=== PATIENT | female | born 1995 | race Caucasian/White ===

== ENCOUNTER 2022-01-06 08:00 | Outpatient (CLI) | payer BC ==
[2022-01-06 15:16] LABS: BILIRUBIN,URINE NEGATIVE (NEGATIVE); GLUCOSE, URINE (UA) NEGATIVE (NEGATIVE); KETONES,URINE (UA) NEGATIVE (NEGATIVE); LEUKOCYTE ESTERASE, URINE TRACE (NEGATIVE); NITRITE,URINE NEGATIVE (NEGATIVE); OCCULT BLOOD,URINE NEGATIVE (NEGATIVE); PROTEIN,URINE NEGATIVE (NEGATIVE); UROBILINOGEN,URINE 0.2 (NORMAL) E.U./dL (NORMAL)
[2022-01-06 15:18] LABS: CLARITY,URINE CLEAR (CLEAR)
[2022-01-06 16:11] LABS: BACTERIA,URINE Rare /HPF (None Seen); CRYSTALS,URINE 6-10 Calcium Oxalate /LPF; RBC,URINE None Seen /HPF (0-5); SQUAMOUS EPITHELIAL CELL,UR MOD Squamous (<= Few); WBC,URINE 0-3 /HPF (0-5)
[2022-01-06 23:12] LABS: CHLAMYDIA TRACHOMATIS DNA NEGATIVE (NEGATIVE); NEISSERIA GONORRHOEAE DNA NEGATIVE (NEGATIVE); TRICHOMONAS VAGINALIS DNA NEGATIVE (NEGATIVE)
== END 2022-01-06 23:59 | disposition home or self-care (01) ==
LOC: LAB.WC 08:00
PROVIDERS: ATTEND Nurse Practitioner
DX: Z34.90 Encounter for supervision of normal pregnancy, unspecified, unspecified trimester (principal); Z36.89 Encounter for other specified antenatal screening
CPT/HCPCS: 81001; 87086; 87491; 87591; 87661

== ENCOUNTER 2022-01-06 12:35 | Outpatient (CLI) | payer BC ==
[2022-01-06 12:51] LABS: BASOPHILS # (AUTO) 0.1 10^3/uL (0.0-0.1); BASOPHILS % (AUTO) 0.5 %; EOSINOPHILS # (AUTO) 0.3 10^3/uL (0.0-0.7); EOSINOPHILS % (AUTO) 2.3 %; HCT - HEMATOCRIT 39.5 % (37.0-47.0); HGB - HEMOGLOBIN 12.8 g/dL (12.0-16.0); LYMPHOCYTES # (AUTO) 2.8 10^3/uL (1.5-3.5); LYMPHOCYTES % (AUTO) 25.9 %; MEAN CORPUSCULAR HEMOGLOBIN 28.1 pg (27.0-31.0); MEAN CORPUSCULAR HGB CONC 32.4 g/dL (32.0-36.0); MEAN CORPUSCULAR VOLUME 86.8 fL (81.0-99.0); MEAN PLATELET VOLUME 10.3 fL (7.9-10.8); MONOCYTES # (AUTO) 0.9 10^3/uL (0.0-1.0); MONOCYTES % (AUTO) 8.3 %; NEUTROPHILS # (AUTO) 6.8 10^3/uL (1.5-6.6); NEUTROPHILS % (AUTO) 62.4 %; PLT - PLATELET COUNT 283 10^3/uL (130-450); RED BLOOD COUNT 4.55 10^6/uL (4.20-5.40); RED CELL DISTRIBUTION WIDTH 13.3 % (12.0-15.0); WHITE BLOOD COUNT 10.8 x10^3/uL (4.8-10.8)
[2022-01-07 04:08] LABS: HBsAG SCREEN Negative (Negative)
[2022-01-07 07:10] LABS: HCV AB <0.1 s/co ratio (0.0-0.9); HIV SCREEN 4TH GENERATION Non Reactive (Non Reactive)
[2022-01-07 08:10] LABS: RPR Non Reactive (Non Reactive); VARICELLA-ZOSTER AB IGG 2678 index (Immune >165)
== END 2022-01-06 12:36 | disposition home or self-care (01) ==
LOC: LAB 12:35
PROVIDERS: ATTEND Nurse Practitioner
DX: Z34.90 Encounter for supervision of normal pregnancy, unspecified, unspecified trimester (principal); Z36.89 Encounter for other specified antenatal screening
CPT/HCPCS: 36415; 81001; 85025; 86592; 86762; 86787; 86803; 86850; 86900; 86901; 87086; 87340; 87389; 87491; 87591; 87661

== ENCOUNTER 2022-01-18 17:00 | Outpatient (CLI) | payer BC ==
--- NOTE | 2022-01-19 13:45 | Ultrasound Report ---
PROCEDURE: OB First Trimester w/TV INDICATIONS: POSITIVE TEST OUTSIDE/PRIOR DATING DATA: Last menstrual period (LMP): 11/14/2021. LMP-based estimated date of delivery (DEEPALI): 08/21/2022. First dating scan (date and location): 01/18/2022. Estimated date of delivery (DEEPALI) from first dating scan: 08/22/2022. The below data below was generated using the ultrasound generated DEEPALI of 08/22/2022 TECHNIQUE: Real-time scanning was performed of the fetus and maternal pelvic organs, with image documentation. Endovaginal scanning was also performed to better visualize the fetus and maternal ovaries. COMPARISON: None. FINDINGS: Uterine fundal gestational sac with mean sac diameter 3.5 cm. Wamic-rump length of a fetus in the ges tational sac measuring 2.4 cm. heart rate 178 bpm. Yolk sac noted. Right corpus luteum cyst not ed. Left ovary normal. IMPRESSION: Single living intrauterine gestation with estimated gestational age of 9 weeks 1 day. Reviewed by: Mj Goel MD on 01/19/2022 1:44 PM PDT Approved by: Mj Goel MD on 01/19/2022 1:44 PM PDT Station ID: [id number]
== END 2022-01-18 17:01 | disposition home or self-care (01) ==
LOC: DI 17:00
PROVIDERS: ATTEND Nurse Practitioner
DX: Z32.01 Encounter for pregnancy test, result positive (principal)

== ENCOUNTER 2022-03-25 10:59 | Outpatient (CLI) | payer OTHER | END 2022-03-25 11:00 | disposition home or self-care (01) | LOC: LAB 10:59 | PROVIDERS: ATTEND Nurse Practitioner Obstetrics & Gynecology | DX: Z13.79 Encounter for other screening for genetic and chromosomal anomalies (principal) | CPT/HCPCS: 36415; 81511 ==

== ENCOUNTER 2022-04-07 20:07 | Outpatient (CLI) | payer OTHER ==
--- NOTE | 2022-04-08 10:16 | Ultrasound Report ---
PROCEDURE: OB Detailed Eval INDICATIONS: SUPERVISOIN OF OUTSIDE/PRIOR DATING DATA: Last menstrual period (LMP): 11/14/2021. LMP-based estimated date of delivery (DEEPALI): 08/21/2022. First dating scan (date and location): 01/18/2022. Estimated date of delivery (DEEPALI) from first dating scan: 08/22/2022 (working DEEPALI). TECHNIQUE: Real-time scanning was performed of the fetus, with image documentation and biometric measurements. COMPARISON: 01/18/2022 FINDINGS: General: A single living intrauterine gestation is present. Presentation: Transverse, head maternal left Placenta: Placental position is anterior, without previa. Amniotic fluid index: 15.4 cm heart rate: 138 beats per minute. Maternal cervical canal: 4.3 cm long; normal length is 2.5 cm or more. biometrics: Biparietal diameter: 4.57 cm Head circumference: 18.2 cm Abdominal circumference: 17.0 cm Femur length: 3.46 cm Estimated gestational age from initial scan: 20 weeks and 3 days Composite gestational age from present scan: 20 weeks and 5 days Estimated weight and percentile: 417 g, 90th percentile Measurement variability in biometric dating: +/- 10 days from 12-20 weeks gestation, +/- 2 weeks from 20-30 weeks gestation, +/- 3 weeks at 30 weeks gestation or later. Anatomic survey: Neuro: Ventricles are normal at less than 10 mm. Cerebellum is within normal limits. Nuchal region not well seen. This measures 5 to 6 mm, at the upper limit of normal. Face: Nose and lips, facial profile are normal. Spine: Not well seen Heart: 4-chambered heart is present, with normal ventricular outflow tracts. Diaphragm: Diaphragm is intact. Stomach: Left-sided stomach is present. Kidneys: Bilateral renal pelvises measure 5 mm. Cord: 3 vessel cord has orthotopic insertion. Bladder: Normal in size. Extremities: All 4 extremities are visualized. Limited exam due to body habitus. IMPRESSION: Living intrauterine gestation at 20 weeks and 5 days, with EFW at the 90th percentile at the upper li zain of normal. The nuchal region is prominent measuring 5 to 6 mm, but overall not well seen. Consider follow-up ree valuation in 7-10 days, ideally before 22 weeks of gestational age. Spine is also not well seen, grossly unremarkable. There is also bilateral renal pelviectasis (UTD A1), consider follow-up ultrasound after 32 weeks unl ess it resolves sooner. Reviewed by: Eugene Montgomery MD on 04/08/2022 10:15 AM [facility] Approved by: Eugene Montgomery MD on 04/08/2022 10:15 AM [facility] Station ID: [id number]
== END 2022-04-07 20:08 | disposition home or self-care (01) ==
LOC: DI 20:07
PROVIDERS: ATTEND Nurse Practitioner Obstetrics & Gynecology
DX: Z34.02 Encounter for supervision of normal first pregnancy, second trimester (principal); Z36.89 Encounter for other specified antenatal screening

== ENCOUNTER 2022-05-20 11:05 | Outpatient (CLI) | payer OTHER ==
[2022-05-20 12:19] LABS: HGB - HEMOGLOBIN 11.5 g/dL (12.0-16.0); MEAN CORPUSCULAR HEMOGLOBIN 27.4 pg (27.0-31.0); MEAN CORPUSCULAR HGB CONC 31.9 g/dL (32.0-36.0); MEAN CORPUSCULAR VOLUME 85.7 fL (81.0-99.0); MEAN PLATELET VOLUME 10.7 fL (7.9-10.8); RED BLOOD COUNT 4.2 10^6/uL (4.20-5.40); RED CELL DISTRIBUTION WIDTH 13.6 % (12.0-15.0); WHITE BLOOD COUNT 10.1 x10^3/uL (4.8-10.8)
== END 2022-05-20 11:06 | disposition home or self-care (01) ==
LOC: LAB 11:05
PROVIDERS: ATTEND Nurse Practitioner Obstetrics & Gynecology
DX: Z36.9 Encounter for antenatal screening, unspecified (principal)
CPT/HCPCS: 36415; 82950; 85027

== ENCOUNTER 2022-05-27 07:39 | Outpatient (CLI) | payer OTHER ==
[2022-05-27 08:13] LABS: GTT GLUCOSE,FASTING 89 mg/dL (70-100)
== END 2022-05-27 07:40 | disposition home or self-care (01) ==
LOC: LAB 07:39
PROVIDERS: ATTEND Nurse Practitioner Obstetrics & Gynecology
DX: O99.810 Abnormal glucose complicating pregnancy (principal)
CPT/HCPCS: 36415; 82951; 82952

== ENCOUNTER 2022-07-12 19:57 | Outpatient (CLI) | payer OTHER ==
--- NOTE | 2022-07-13 14:35 | Ultrasound Report ---
PROCEDURE: OB F/U or Repeat INDICATIONS: OBESITY COMPLICATION OUTSIDE/PRIOR DATING DATA: Last menstrual period (LMP): 11/14/2021. LMP-based estimated date of delivery (DEEPALI): 08/21/2022. First dating scan (date and location): 01/18/2022. Estimated date of delivery (DEEPALI) from first dating scan: 08/22/2022. The below data below was generated using the working DEEPALI of 08/22/2022 TECHNIQUE: Real-time scanning was performed of the fetus, with image documentation and biometric measurements. Endovaginal scanning: Not indicated COMPARISON: 04/21/2022, 04/07/2022 FINDINGS: General: A single living intrauterine gestation is present. Presentation: Vertex Placenta: Placental position is anterior, without previa. Amniotic fluid index: 12 cm, normal for gestational age. heart rate: 129 beats per minute. Maternal cervical canal: Not well seen. biometrics: Biparietal diameter: 8 cm, 32 weeks, 1 day. Head circumference: 31.2 cm, 35 weeks, 0 day. Abdominal circumference: 31.2 cm, 35 weeks, 1 day. Femur length: 6.6 cm, 34 weeks, 0 day. Estimated gestational age from initial scan: 34 weeks, 1 day. Composite gestational age from present scan: 34 weeks, 1 day. Estimated weight and percentile: 2442.2 g, 54.4% Measurement variability in biometric dating: +/- 10 days from 12-20 weeks gestation, +/- 2 weeks from 20-30 weeks gestation, +/- 3 weeks at 30 weeks gestation or more. Other: Right renal pelvis now measures 4 mm in diameter. Left renal pelvis also measures 4 mm in diam eter. IMPRESSION: 1. Single live intrauterine gestation with fetus in vertex presentation. heart rate is 129 bpm. Normal amount of amniotic fluid. Normal growth. Estimated weight is at 54.4%. 2. Bilateral renal pelvis now measures up to 4 mm in diameter and are within normal limits. Reviewed by: Joseph Lopez MD on 07/13/2022 2:34 PM PDT Approved by: Joseph Lopez MD on 07/13/2022 2:34 PM PDT Station ID: [id number]
== END 2022-07-12 19:58 | disposition home or self-care (01) ==
LOC: DI 19:57
PROVIDERS: ATTEND Nurse Practitioner Obstetrics & Gynecology
DX: O99.213 Obesity complicating pregnancy, third trimester (principal); Z3A.34 34 weeks gestation of pregnancy

== ENCOUNTER 2022-08-06 13:17 | Outpatient (CLI) | payer OTHER ==
[2022-08-06 13:34] LABS: BASOPHILS % (AUTO) 0.2 %; EOSINOPHILS # (AUTO) 0.1 10^3/uL (0.0-0.7); EOSINOPHILS % (AUTO) 0.7 %; HCT - HEMATOCRIT 36.1 % (37.0-47.0); HGB - HEMOGLOBIN 11.4 g/dL (12.0-16.0); LYMPHOCYTES % (AUTO) 23.3 %; MEAN CORPUSCULAR HEMOGLOBIN 26.9 pg (27.0-31.0); MEAN CORPUSCULAR HGB CONC 31.6 g/dL (32.0-36.0); MEAN CORPUSCULAR VOLUME 85.1 fL (81.0-99.0); MEAN PLATELET VOLUME 11.1 fL (7.9-10.8); MONOCYTES # (AUTO) 0.6 10^3/uL (0.0-1.0); MONOCYTES % (AUTO) 6.4 %; NEUTROPHILS # (AUTO) 5.8 10^3/uL (1.5-6.6); NEUTROPHILS % (AUTO) 67.4 %; PLT - PLATELET COUNT 194 10^3/uL (130-450); RED BLOOD COUNT 4.24 10^6/uL (4.20-5.40); RED CELL DISTRIBUTION WIDTH 13.6 % (12.0-15.0); WHITE BLOOD COUNT 8.6 x10^3/uL (4.8-10.8)
[2022-08-06 13:46] LABS: ALBUMIN 3.1 g/dL (3.2-5.5); ALBUMIN/GLOBULIN RATIO 0.9 (1.0-2.2); BILIRUBIN,TOTAL 0.4 mg/dL (0.2-1.0); CREATININE 0.6 mg/dL (0.4-1.0); POTASSIUM 3.5 mmol/L (3.5-5.0); TOTAL PROTEIN 6.7 g/dL (6.7-8.2)
== END 2022-08-06 13:18 | disposition home or self-care (01) ==
LOC: LAB 13:17
PROVIDERS: ATTEND Nurse Practitioner Obstetrics & Gynecology
DX: R03.0 Elevated blood-pressure reading, without diagnosis of hypertension (principal)
CPT/HCPCS: 36415; 80053; 84156; 85025

== ENCOUNTER 2022-08-14 16:49 | Inpatient (IN) | payer OTHER ==
[2022-08-14 17:54] LABS: RUPTURE OF MEMBRANES PLUS NEGATIVE (NEGATIVE)
[2022-08-14] MEDS: LACTATED RINGERS 1,000 ML IV SCH ×2 (18:51→20:16)
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
[2022-08-14] MEDS ORDERED: METHYLERGONOVINE 0.2 MG/ML VIAL IM PRN (19:01)
[2022-08-14] MEDS ORDERED: LABETALOL 20 MG/4 ML SYRINGE IVP PRN ×6 (19:01→21:44)
[2022-08-14] MEDS ORDERED: SODIUM CHLORIDE FLUSH 0.9% 10 ML SYRINGE IVP PRN (19:01)
[2022-08-14] MEDS ORDERED: TRANEXAMIC ACID IN NACL 1,000 MG/100 ML BAG IV PRN (19:01)
[2022-08-14] MEDS ORDERED: miSOPROStoL 200 MCG TABLET BC PRN (19:01)
[2022-08-14] MEDS ORDERED: TERBUTALINE 1 MG/ML VIAL SUBQ PRN (19:01)
[2022-08-14] MEDS ORDERED: AMPICILLIN 2 GM in SODIUM CHLORIDE 0.9% MINIBAG 100 ML IV ONE (19:01)
[2022-08-14] MEDS ORDERED: OXYTOCIN 10 UNIT/ML VIAL IM PRN (19:01)
[2022-08-14] MEDS ORDERED: lidocaine 1% 20 ML MDV ID PRN (19:01)
[2022-08-14] MEDS ORDERED: OXYTOCIN/SODIUM CHLORIDE 500 ML IV PRN ×2 (19:01→21:44)
[2022-08-14] MEDS ORDERED: CARBOPROST TROMETHAMINE 250 MCG/ML AMP IM PRN (19:01)
[2022-08-14] MEDS ORDERED: hydrALAZINE INJ 20 MG/ML VIAL IVP PRN ×4 (19:01→21:44)
[2022-08-14] MEDS ORDERED: NIFEdipine 10 MG CAPSULE PO PRN ×2 (19:01→21:44)
[2022-08-14] MEDS ORDERED: miSOPROStoL 200 MCG TABLET PR PRN (19:01)
[2022-08-14 19:42] LABS: BASOPHILS % (AUTO) 0.2 %; EOSINOPHILS # (AUTO) 0.1 10^3/uL (0.0-0.7); EOSINOPHILS % (AUTO) 0.8 %; HCT - HEMATOCRIT 32.1 % (37.0-47.0); HGB - HEMOGLOBIN 10.4 g/dL (12.0-16.0); LYMPHOCYTES % (AUTO) 19.1 %; MEAN CORPUSCULAR HEMOGLOBIN 26.9 pg (27.0-31.0); MEAN CORPUSCULAR HGB CONC 32.4 g/dL (32.0-36.0); MEAN CORPUSCULAR VOLUME 82.9 fL (81.0-99.0); MEAN PLATELET VOLUME 11.2 fL (7.9-10.8); MONOCYTES # (AUTO) 0.9 10^3/uL (0.0-1.0); MONOCYTES % (AUTO) 9.1 %; NEUTROPHILS # (AUTO) 7.3 10^3/uL (1.5-6.6); NEUTROPHILS % (AUTO) 69.8 %; PLT - PLATELET COUNT 178 10^3/uL (130-450); RED BLOOD COUNT 3.87 10^6/uL (4.20-5.40); RED CELL DISTRIBUTION WIDTH 13.6 % (12.0-15.0); WHITE BLOOD COUNT 10.4 x10^3/uL (4.8-10.8)
[2022-08-14 19:54] LABS: ALBUMIN 2.9 g/dL (3.2-5.5); ALBUMIN/GLOBULIN RATIO 0.8 (1.0-2.2); BILIRUBIN,TOTAL 0.4 mg/dL (0.2-1.0); CALCIUM 8.8 mg/dL (8.5-10.3); CREATININE 0.6 mg/dL (0.4-1.0); POTASSIUM 3.7 mmol/L (3.5-5.0); TOTAL PROTEIN 6.4 g/dL (6.7-8.2)
[2022-08-14] MEDS ORDERED: BUPIVACAINE 0.5%-EPI 1:200000 PF 30 ML VIAL ONE (20:23)
[2022-08-14] MEDS ORDERED: LIDOCAINE MPF 2%-EPI 1:200000 20 ML VIAL ONE (20:23)
--- NOTE | 2022-08-14 20:25 | ANESTHESIA ---
Pre-Anesthesia VS, & Labs - Diagnosis non reassuring FHT in labor - Procedure section Vital Signs: Temp Pulse Resp BP Pulse Ox O2 Flow Rate 37.0 C 94 20 122/84 H 08/14/22 17:01 08/14/22 17:01 08/14/22 17:01 08/14/22 17:01 Height: 5 ft 6 in Weight (kg): 115.666 kg Body Mass Index: 41.1 BMI Classification: Morbidly Obese - NPO Other (salad at 1600) - Is Patient ?: Yes - Lab Results Current Lab Results: Laboratory Tests 08/14/22 19:25: Sodium 135, Potassium 3.7, Chloride 105, Carbon Dioxide 21, Anion Gap 9.0, BUN 8, Creatinine 0.6, Estimated GFR (MDRD) 121, Glucose 83, Calcium 8.8, Total Bilirubin 0.4, AST 16, ALT 15, Alkaline Phosphatase 159 H, Total Protein 6.4 L, Albumin 2.9 L, Globulin 3.5, Albumin/Globulin Ratio 0.8 L 08/14/22 19:25: WBC 10.4, RBC 3.87 L, Hgb 10.4 L, Hct 32.1 L, MCV 82.9, MCH 26.9 L, MCHC 32.4, RDW 13.6, Plt Count 178, MPV 11.2 H, Neut # (Auto) 7.3 H, Lymph # (Auto) 2.0, [place] # (Auto) 0.9, Eos # (Auto) 0.1, Baso # (Auto) 0.0, Absolute Nucleated RBC 0.00, Nucleated RBC % 0.0 Fish Bones: 08/14/22 19:25 08/14/22 19:25 Home Medications and Allergies Active Medications Carboprost Tromethamine (Carboprost Tromethamine 250 Mcg/Ml Amp) 250 mcg IM .ONCE PRN PRN Reason: Hemorrhage Hydralazine HCl (Hydralazine Inj 20 Mg/Ml Vial) 5 - 10 mg IVP Q20M PRN; Protocol PRN Reason: SBP> or= 160 OR DBP> or= 110 Hydralazine HCl (Hydralazine Inj 20 Mg/Ml Vial) 10 mg IVP .ONCE PRN; Protocol PRN Reason: SBP> or= 160 OR DBP> or= 110 Lactated Ringer's (Lr) 1,000 mls @ 125 mls/hr IV .Q8H [facility] Last Admin: 08/14/22 18:51 Dose: 125 mls/hr Oxytocin/Sodium Chloride (Pitocin/Sodium Chloride) 500 mls @ 999 mls/hr IV PRN PRN; Protocol PRN Reason: POST- HEMORR PREVENTION Tranexamic Acid (Tranexamic 1,000 Mg/100ml-Nacl) 1,000 mg in 100 mls @ 600 mls/hr IV Q30M PRN PRN Reason: EBL >1200mL and within 3hr Ampicillin Sodium 1 gm/ Sodium (Chloride) 100 mls @ 200 mls/hr IV Q4H [facility] Cefazolin Sodium 3 gm/ Sodium (Chloride) 50 mls @ 100 mls/hr IV ONCE ONE Stop: 08/14/22 20:33 Labetalol HCl (Labetalol 20 Mg/4 Ml Syringe) 20 - 80 mg IVP Q10M PRN; Protocol PRN Reason: SBP> or= 160 OR DBP> or= 110 Labetalol HCl (Labetalol 20 Mg/4 Ml Syringe) 20 mg IVP .ONCE PRN; Protocol PRN Reason: SBP> or= 160 OR DBP> or= 110 Labetalol HCl (Labetalol 20 Mg/4 Ml Syringe) 20 - 40 mg IVP Q10M PRN; Protocol PRN Reason: SBP> or= 160 OR DBP> or= 110 Lidocaine HCl (Lidocaine 1% 20 Ml Mdv) 20 ml ID .ONCE PRN PRN Reason: PERINEAL REPAIR Stop: 08/17/22 19:01 Methylergonovine Maleate (Methylergonovine 0.2 Mg/Ml Vial) 0.2 mg IM .ONCE PRN PRN Reason: Hemorrhage Misoprostol (Misoprostol 200 Mcg Tablet) 600 mcg BC .ONCE PRN PRN Reason: Hemorrhage Misoprostol (Misoprostol 200 Mcg Tablet) 800 mcg HI .ONCE PRN PRN Reason: Hemorrhage Nifedipine (Nifedipine 10 Mg Capsule) 10 - 20 mg PO Q20M PRN; Protocol PRN Reason: SBP> or= 160 OR DBP> or= 110 Oxytocin (Oxytocin 10 Unit/Ml Vial) 10 unit IM .ONCE PRN PRN Reason: Step One if no IV access. Sodium Chloride (Sodium Chloride Flush 0.9% 10 Ml Syringe) 10 ml IVP PRN PRN PRN Reason: NEEDED PER PROVIDER ORDERS Sodium Chloride (Sodium Chloride Flush 0.9% 10 Ml Syringe) 10 ml IVP Q8H [facility] Terbutaline Sulfate (Terbutaline 1 Mg/Ml Vial) 0.25 mg SUBQ .ONCE PRN PRN Reason: Tachystole Last Admin: 08/14/22 20:05 Dose: 0.25 mg Allergies/Adverse Reactions: Allergies Allergy/AdvReac Type Severity Reaction Status Date / Time egg Allergy Intermediate Rash Verified 08/14/22 19:42 Anes History & Medical History - Anesthetic History Anesthesia Complications: reports: No previous complications - Medical History Smoking Status: Never smoker - Obstetrical History : 1 Parity: 0 Events: reports: Genital herpes Complications: reports: None Exam General: Alert, Oriented x3 Dental: WNL Mouth Opening: Greater than 4 Fingerbreadths Mallampati classification: II Thyromental Distance: greater than 6 cm Respiratory: Lungs clear Cardiovascular: Regular rate Plan Anesthesia Type: Spinal Consent for Procedure(s) Verified and Reviewed: Yes Code Status: Attempt Resuscitation ASA classification: 2-Mild systemic disease Is this case an emergency?: Yes
[2022-08-14] MEDS ORDERED: ceFAZolin 1 GM VIAL ONE (21:04)
[2022-08-14] MEDS ORDERED: OXYTOCIN 10 UNIT/ML VIAL ONE ×2 (21:04→21:35)
[2022-08-14] MEDS ORDERED: ONDANSETRON 4 MG/2 ML VIAL ONE (21:04)
[2022-08-14] MEDS ORDERED: ePHEDrine 50 MG/ML VIAL IVP ONE (21:04)
[2022-08-14 21:09] LABS: CORD ARTERIAL BLOOD PH 7.277
[2022-08-14 21:10] LABS: CORD ARTERIAL BLD BASE EXCESS -2.4; CORD ARTERIAL BLD OXYGEN SAT 17.9; CORD ARTERIAL BLOOD HCO3 25.6; CORD ARTERIAL BLOOD PCO2 56.1; CORD ARTERIAL BLOOD PO2 11.8; CORD ARTERIAL BLOOD TOTAL CO2 27.3; CORD VENOUS BLD PO2 21.3; CORD VENOUS BLOOD PCO2 43.6; CORD VENOUS BLOOD PH 7.375
[2022-08-14 21:11] LABS: CORD VENOUS BLOOD BASE EXCESS -0.5; CORD VENOUS BLOOD HCO3 24.9; CORD VENOUS BLOOD OXYGEN SAT 54.2; CORD VENOUS BLOOD TOTAL CO2 26.3
[2022-08-14] MEDS ORDERED: HYDROmorphone 0.5 MG/0.5 ML SYRINGE IVP PRN (21:11)
[2022-08-14] MEDS ORDERED: NALOXONE 0.4 MG/ML VIAL IVP PRN ×2 (21:11→21:44)
[2022-08-14] MEDS ORDERED: ATROPINE ABBOJECT 1 MG/10 ML SYRINGE IVP PRN (21:11)
[2022-08-14] MEDS ORDERED: fentaNYL 100 MCG/2 ML VIAL IVP PRN (21:11)
[2022-08-14] MEDS ORDERED: METOCLOPRAMIDE 10 MG/2 ML VIAL IVP PRN (21:11)
[2022-08-14] MEDS ORDERED: ONDANSETRON 4 MG/2 ML VIAL IVP PRN ×2 (21:11→22:09)
[2022-08-14] MEDS ORDERED: MORPHINE 2 MG/ML CARPUJECT IVP PRN (21:11)
[2022-08-14] MEDS ORDERED: ePHEDrine 50 MG/ML VIAL IVP PRN (21:11)
[2022-08-14] MEDS ORDERED: ROPIVACAINE 0.5% PF 20 ML VIAL ONE (21:40)
[2022-08-14] MEDS ORDERED: ACETAMINOPHEN 1,000 MG/100 ML 1,000 MG/100 ML BAG IV ONE (21:40)
[2022-08-14] MEDS ORDERED: CALCIUM CARBONATE CHEW 500 MG TABLET PO PRN (21:44)
[2022-08-14] MEDS ORDERED: SIMETHICONE CHEW 80 MG TABLET PO PRN (21:44)
[2022-08-14] MEDS ORDERED: HYDROCORTISONE 1% CREAM 28 GM TUBE TOP PRN (21:44)
[2022-08-14] MEDS ORDERED: WITCH HAZEL/GLYCERIN 1 PAD TOP PRN (21:44)
--- NOTE | 2022-08-14 21:50 | DELIVERY NOTE ---
Delivery Note - Labor Labor: positive: Spontaneous - Delivery Method Delivery Method: positive: Primary - Presentation Presentation: positive: Vertex - Nuchal Cord Nuchal Cord: positive: Present (Nuchal x2 reduced) - Anesthetic Anesthetic Type: - Amniotic Fluid Description Amniotic Fluid Description: positive: Clear - Episiotomy Type Episiotomy Type: positive: None - Laceration Laceration: positive: None - Delivery Outcome Delivery Outcome: positive: Livebirth - [place] : positive: Bulb syringe, Stimulated, Warmed, [place] used, Warmer used sex: positive: Male - Cord Cord: positive: 3 vessels - Placenta Placenta: positive: Intact, Expressed - Estimated Blood Loss Estimated Blood Loss (in cc): 800 - Delivery Comments (Free Text/Narrative) Delivery Comments (Free Text/Narrative): See operative report for PCD
--- NOTE | 2022-08-14 21:52 | OPERATIVE REPORT ---
Operative Report - General Admit Date: 08/14/22 Procedure Date: 08/14/22 Planned Procedure: Primary section Pre-Op Diagnosis: 27yo with IUP at 39w, NRFHT Procedure Performed: Primary section Post Op Diagnosis: 27yo with IUP at 39w, NRFHT - Procedure Note Primary Surgeon: Sushila Arteaga DO Secondary Surgeon: Beatriz James CNM; assistance required for retraction and safe completion Anesthesia Provider: Kala Davies CRNA Anesthesia Technique: Spinal Pathology: None Placenta discarded Estimated Blood Loss (mL): 800 Indications: NRFHT Findings: Normal appearing uterus, oviducts, ovaries Nuchal cord x2 Complications: None - Other Other Information/Narrative: Under spinal anaesthetic with a Dyer catheter inserted, the patient was prepped and draped in the usual sterile fashion in the supine position with a leftward tilt. A Pfannensteil incision was made. The incision was carried down to the fascia with sharp dissection. The fascia was incised transversely and dissected off the rectus muscle using blunt and sharp dissection. Electrocautery was used for hemostasis. The peritoneum was opened taking care not to injure the bladder. The vesicouterine peritoneum was dissected off the lower uterine segment. The lower segment was assessed and a low transverse incision was made. The uterine incision was extended bluntly. The fetus was presenting as a vertex. The head was delivered without difficulty. Nuchal cord x2 noted and reduced. The rest of the body followed easily. After one minute of delayed cord clamping, the cord was clamped twice and cut and the baby transferred to the warmer, awaiting the pediatric staff. Cord gases and cord blood were then obtained. The placenta was then delivered with assistance. The uterus was explored and was empty of all tissue. The uterus was exteriorized for better visualization. The uterine incision was then closed in t wo layers with 0-Monocryl suture. The first layer was locking and the second was imbricating. Tubes and ovaries were examined and appeared normal. Hemostasis at all dissection sites. The fascia was closed with 0-Vicryl in a running unlocked fashion. Subcutaneous layer reapproximated with 2-0 chromic. The skin was then reapproximated with 3-0 Monocryl. At the end of the procedure all sponges, instruments, and sharps were counted and correct. Estimated blood loss was 800cc. The patient and baby boy were taken to the recovery in stable condition.
[2022-08-14] MEDS ORDERED: LACTATED RINGERS 1,000 ML IV SCH (22:00)
[2022-08-14] MEDS ORDERED: LACTATED RINGERS 550 ML IV ONE (22:10)
--- NOTE | 2022-08-14 22:16 | ANESTHESIA POST OP EVALUATION ---
Anesthesia Post Eval - Post Anesthesia Eval Vitals: Last Vital Signs Temp 37.0 C 08/14/22 17:01 Pulse 94 08/14/22 17:01 Resp 20 08/14/22 17:01 BP 122/84 H 08/14/22 17:01 Pulse Ox O2 Flow Rate CV Function Including HR & BP: Stable Pain Control: Satisfactory Nausea & Vomiting: Negative Mental Status: Baseline Respiratory Status: Airway Patent Hydration Status: Satisfactory Anesthesia Complications: None
[2022-08-14] MEDS ORDERED: AMPICILLIN 1 GM in SODIUM CHLORIDE 0.9% MINIBAG 100 ML IV SCH (23:45)
[2022-08-15] MEDS: KETOROLAC 30 MG/ML VIAL IVP SCH ×3 (03:47→15:59)
[2022-08-15] MEDS: SODIUM CHLORIDE FLUSH 0.9% 10 ML SYRINGE IVP SCH ×2 (03:48→14:42)
[2022-08-15] MEDS: ACETAMINOPHEN 500 MG TABLET PO SCH ×3 (05:46→21:48)
[2022-08-15 05:55] LABS: HCT - HEMATOCRIT 26.4 % (37.0-47.0); HGB - HEMOGLOBIN 8.5 g/dL (12.0-16.0); MEAN CORPUSCULAR HEMOGLOBIN 27.2 pg (27.0-31.0); MEAN CORPUSCULAR HGB CONC 32.2 g/dL (32.0-36.0); MEAN CORPUSCULAR VOLUME 84.6 fL (81.0-99.0); MEAN PLATELET VOLUME 11.1 fL (7.9-10.8); RED BLOOD COUNT 3.12 10^6/uL (4.20-5.40); RED CELL DISTRIBUTION WIDTH 13.8 % (12.0-15.0); WHITE BLOOD COUNT 11.7 x10^3/uL (4.8-10.8)
[2022-08-15] MEDS: oxyCODONE 5 MG TABLET PO PRN ×2 (06:11→12:22)
[2022-08-15] MEDS: DOCUSATE SODIUM 100 MG CAPSULE PO SCH ×2 (09:25→21:48)
--- NOTE | 2022-08-15 12:09 | PROVIDER PROGRESS NOTE ---
Subjective - Prog Note Date Prog Note Date: 08/15/22 Prog Note Time: 12:00 - Subjective Pt reports feeling: Improved Subjective: Comfortable. Appropriate lochia. Up out of bed once, denies lightheadedness or dizziness. Dyer catheter to be removed after lunch. Tolerating regular diet. well, working on latch. Mood is good. Objective - Vital Signs/Intake & Output Reviewed Vital Signs: Yes Vital Signs: Vital Signs x48h Temp Pulse Resp BP Pulse Ox 08/15/22 09:51 98.1 F 91 18 124/68 98 Intake & Output: Intake & Output 08/12/22 08/13/22 08/14/22 08/15/22 23:59 23:59 23:59 23:59 Intake Total 3064.281 7151 Output Total 1220 Balance 1277.083 150 - Objective General Appearance: positive: No acute distress Eyes Bilateral: positive: EOMI Respiratory: positive: No respiratory distress Abdomen: positive: Other (Prevena dressing in place, c/d/i) Skin: positive: Pallor (Mild) Extremities: positive: Non-tender Neurologic/Psychiatric: positive: Oriented x3 - Lab Results Fish Bones: 08/15/22 05:30 08/14/22 19:25 Other Labs: Lab Results x24hrs 08/15/22 08/14/22 08/14/22 Range/Units 05:30 20:56 19:25 WBC 11.7 H (4.8-10.8) x10^3/uL RBC 3.12 L (4.20-5.40) 10^6/uL Hgb 8.5 L (12.0-16.0) g/dL Hct 26.4 L (37.0-47.0) % MCV 84.6 (81.0-99.0) fL MCH 27.2 (27.0-31.0) pg MCHC 32.2 (32.0-36.0) g/dL RDW 13.8 (12.0-15.0) % Plt Count 164 (130-450) 10^3/uL MPV 11.1 H (7.9-10.8) fL Neut # (Auto) (1.5-6.6) 10^3/uL Lymph # (Auto) (1.5-3.5) 10^3/uL [place] # (Auto) (0.0-1.0) 10^3/uL Eos # (Auto) (0.0-0.7) 10^3/uL Baso # (Auto) (0.0-0.1) 10^3/uL Absolute Nucleated RBC x10^3/uL Nucleated RBC % /100WBC Cord ABG pH 7.277 Cord ABG pCO2 56.1 Cord ABG pO2 11.8 Cord ABG HCO3 25.6 Cord ABG Total CO2 27.3 Cord ABG Base Excess -2.4 Cord ABG O2 Sat 17.9 Cord VBG pH 7.375 Cord VBG pCO2 43.6 Cord VBG pO2 21.3 Cord VBG HCO3 24.9 Cord VBG Total CO2 26.3 Cord VBG Base Excess -0.5 Cord VBG O2 Sat 54.2 Sodium 135 (135-145) mmol/L Potassium 3.7 (3.5-5.0) mmol/L Chloride 105 (101-111) mmol/L Carbon Dioxide 21 (21-32) mmol/L Anion Gap 9.0 (6-13) BUN 8 (6-20) mg/dL Creatinine 0.6 (0.4-1.0) mg/dL Estimated GFR (MDRD) 121 (>89) Glucose 83 (70-100) mg/dL Calcium 8.8 (8.5-10.3) mg/dL Total Bilirubin 0.4 (0.2-1.0) mg/dL AST 16 (10-42) IU/L ALT 15 (10-60) IU/L Alkaline Phosphatase 159 H (42-121) IU/L Total Protein 6.4 L (6.7-8.2) g/dL Albumin 2.9 L (3.2-5.5) g/dL Globulin 3.5 (2.1-4.2) g/dL Albumin/Globulin Ratio 0.8 L (1.0-2.2) Membranes Rupture (NEGATIVE) Blood Type Antibody Screen 08/14/22 08/14/22 08/14/22 Range/Units 19:25 19:25 17:20 WBC 10.4 (4.8-10.8) x10^3/uL RBC 3.87 L (4.20-5.40) 10^6/uL Hgb 10.4 L (12.0-16.0) g/dL Hct 32.1 L (37.0-47.0) % MCV 82.9 (81.0-99.0) fL MCH 26.9 L (27.0-31.0) pg MCHC 32.4 (32.0-36.0) g/dL RDW 13.6 (12.0-15.0) % Plt Count 178 (130-450) 10^3/uL MPV 11.2 H (7.9-10.8) fL Neut # (Auto) 7.3 H (1.5-6.6) 10^3/uL Lymph # (Auto) 2.0 (1.5-3.5) 10^3/uL [place] # (Auto) 0.9 (0.0-1.0) 10^3/uL Eos # (Auto) 0.1 (0.0-0.7) 10^3/uL Baso # (Auto) 0.0 (0.0-0.1) 10^3/uL Absolute Nucleated RBC 0.00 x10^3/uL Nucleated RBC % 0.0 /100WBC Cord ABG pH Cord ABG pCO2 Cord ABG pO2 Cord ABG HCO3 Cord ABG Total CO2 Cord ABG Base Excess Cord ABG O2 Sat Cord VBG pH Cord VBG pCO2 Cord VBG pO2 Cord VBG HCO3 Cord VBG Total CO2 Cord VBG Base Excess Cord VBG O2 Sat Sodium (135-145) mmol/L Potassium (3.5-5.0) mmol/L Chloride (101-111) mmol/L Carbon Dioxide (21-32) mmol/L Anion Gap (6-13) BUN (6-20) mg/dL Creatinine (0.4-1.0) mg/dL Estimated GFR (MDRD) (>89) Glucose (70-100) mg/dL Calcium (8.5-10.3) mg/dL Total Bilirubin (0.2-1.0) mg/dL AST (10-42) IU/L ALT (10-60) IU/L Alkaline Phosphatase (42-121) IU/L Total Protein (6.7-8.2) g/dL Albumin (3.2-5.5) g/dL Globulin (2.1-4.2) g/dL Albumin/Globulin Ratio (1.0-2.2) Membranes Rupture NEGATIVE (NEGATIVE) Blood Type O POSITIVE Antibody Screen NEGATIVE Assessment/Plan - Problem List (1) care following delivery Impression: 27yo s/p PCD 08/14/22 at 39w for NRFHT, POD#1 - Continue and postoperative care - Anticipate discharge home tomorrow (2) Acute postoperative anemia due to expected blood loss Impression: [facility] today and tomorrow
[2022-08-15] MEDS: FERRIC GLUCONATE 125 MG in SODIUM CHLORIDE 0.9% 100ML 100 ML IV SCH (13:31)
[2022-08-15] MEDS: FLUoxetine 10 MG CAPSULE PO SCH (14:28)
[2022-08-15] MEDS ORDERED: KETOROLAC 30 MG/ML VIAL ONE (16:02)
[2022-08-15] MEDS ORDERED: SIMETHICONE CHEW 80 MG TABLET PO ONE (16:02)
[2022-08-15] MEDS: IBUPROFEN 600 MG TABLET PO SCH (21:49)
[2022-08-16] MEDS: IBUPROFEN 600 MG TABLET PO SCH (04:08)
[2022-08-16] MEDS: ACETAMINOPHEN 500 MG TABLET PO SCH ×3 (05:59→21:25)
--- NOTE | 2022-08-16 08:53 | Discharge Plan ---
Discharge Plan Problem Reviewed?: Yes Disposition: Home, Self Care Condition: Good Prescriptions: Acetaminophen [Acetaminophen Extra Strength] 1,000 mg PO Q8H PRN #60 tablet PRN Reason: Pain Docusate Sodium 100Mg Capsule [Colace 100Mg Capsule] 100 - 200 mg PO BID PRN #60 cap PRN Reason: Constipation Ibuprofen [Motrin] 600 mg PO Q6H PRN #30 tab PRN Reason: Pain oxyCODONE [Roxicodone] 5 mg PO Q4H PRN #20 tablet PRN Reason: Severe Pain Diet: Regular Activity Restrictions: Additional Comments Instruction Topics: C Section Dc No Smoking: If you smoke, Please STOP! Call for help. Follow-up with: Karina Gale ARNP [Primary Care Provider] - Beatriz James CNM, ARNP [Provider Admit Priv/Credential] -
--- NOTE | 2022-08-16 08:56 | DISCHARGE SUMMARY ---
Discharge Summary Admit Date: 08/14/22 Discharge Date: 08/16/14 Discharging Provider: Leroy Calderon MD Condition at Discharge: Good Discharge Disposition: 01 Home, Self Care - DIAGNOSES Admission Diagnoses: 39 weeks gestation Latent labor- Category 2 tracing GBS positive HSV-2 positive Discharge Diagnoses with Status of Each Condition: 39 weeks gestation Latent labor Category 2 tracing GBS positive HSV-2 positive Delivery of live salazar - HPI History of Present Illness: Subjective Patient reports she is doing well. Lochia appropriate. Denies heavy bleeding. Ambulating. Pelvic and abdominal pain well-controlled. Tolerating oral intake. Diet: Regular. Voiding without difficulty. Passing flatus. Denies BM. Patient is bonding with baby in room Breast feeding going well. Denies feeling lightheaded, dizzy or excessively fatigued. Objective General: Alert, oriented, no apparent distress. Cardiovascular: Regular rate. Regular rhythm. Lungs: No increased work of breathing. Abdomen: Uterus firm. Below umbilicus. No guarding or rebound. Extremities: No pain on palpation. No cords palpated. Distal pulses intact. Incision: Clean, dry, and intact. - HOSPITAL COURSE Hospital Course: Patient was admitted at 39 weeks in latent labor. She had a category 2 tracing. This did not resolve with intrauterine resuscitation, so on-call physician was notified and primary low-transverse section was performed. The surgery was uneventful. course was also uneventful. She had a Prevena wound dressing that was removed prior to discharge. She tolerated her course well and was discharged on day 2 with her . - ALLERGIES Allergies/Adverse Reactions: Allergies Allergy/AdvReac Type Severity Reaction Status Date / Time egg Allergy Intermediate Rash Verified 08/14/22 19:42 - MEDICATIONS Home Medications: Ambulatory Orders Medication Instructions Recorded Confirmed Acetaminophen [Acetaminophen Extra 1,000 mg PO Q8H PRN #60 tablet 08/16/22 Strength] Docusate Sodium 100Mg Capsule 100 - 200 mg PO BID PRN #60 cap 08/16/22 [Colace 100Mg Capsule] Ibuprofen [Motrin] 600 mg PO Q6H PRN #30 tab 08/16/22 oxyCODONE [Roxicodone] 5 mg PO Q4H PRN #20 tablet 08/16/22 - LABS Result Diagrams: 08/15/22 05:30 08/14/22 19:25 - FOLLOW UP Follow Up: With JESU Guerra in 1 to 2 weeks. Can also follow-up with [facility] women's care if she desires. - TIME SPENT Time Spent in Discharge (Minutes): 20
[2022-08-16] MEDS: DOCUSATE SODIUM 100 MG CAPSULE PO SCH ×2 (09:15→21:00)
[2022-08-16] MEDS: FLUoxetine 10 MG CAPSULE PO SCH (09:15)
[2022-08-16] MEDS: FERRIC GLUCONATE 125 MG in SODIUM CHLORIDE 0.9% 100ML 100 ML IV SCH (09:55)
[2022-08-16] MEDS: IBUPROFEN 800 MG TABLET PO SCH ×3 (10:12→23:21)
[2022-08-17] MEDS: ACETAMINOPHEN 500 MG TABLET PO SCH ×2 (05:29→06:00)
[2022-08-17] MEDS: IBUPROFEN 800 MG TABLET PO SCH ×2 (05:29→06:00)
[2022-08-17 08:01] VITALS: BP 135/74
--- NOTE | 2022-08-17 08:29 | DISCHARGE SUMMARY ---
"Discharge Summary Admit Date: 08/14/22 Discharge Date: 08/17/22 Discharging Provider: Leroy Calderon MD Code Status: Attempt Resuscitation Condition at Discharge: Good Discharge Disposition: 01 Home, Self Care - DIAGNOSES Admission Diagnoses: 39 weeks gestation Latent labor Category 2 tracing GBS positive HSV-2 positive Discharge Diagnoses with Status of Each Condition: 39 weeks gestation Latent labor Category 2 tracing GBS positive HSV-2 positive Delivery of live salazar - HPI History of Present Illness: Subjective Patient reports she is doing well. Lochia appropriate. Denies heavy bleeding. Ambulating. Pelvic and abdominal pain well-controlled. Tolerating oral intake. Diet: Regular. Voiding without difficulty. Passing flatus. Denies BM. Patient is bonding with baby in room Breast feeding going well. Denies feeling lightheaded, dizzy or excessively fatigued. Objective General: Alert, oriented, no apparent distress. Cardiovascular: Regular rate. Regular rhythm. Lungs: No increased work of breathing. Abdomen: Uterus firm. Below umbilicus. No guarding or rebound. Extremities: No pain on palpation. No cords palpated. Distal pulses intact. Incision: Clean, dry, and intact. Wound VAC removed today - CONSULTS | PROCEDURES Consultations: Anesthesia - HOSPITAL COURSE Hospital Course: Patient was admitted at 39 weeks in latent labor. She had a category 2 tracing. This did not resolve with intrauterine resuscitation, so on-call physician was notified and primary low-transverse section was performed. The surgery was uneventful. course was also uneventful. She had a Prevena wound dressing that was removed prior to discharge. Patient expected discharge on day 2, but had difficulties breast-feeding, so another day was spent working with patient and on eating. She was discharged on postoperative day 3. weight: 3245 g - ALLERGIES Allergies/Adverse Reactions: Allergies Allergy/AdvReac Type Severity Reaction Status Date / Time egg Allergy Intermediate Rash Verified 08/14/22 19:42 - MEDICATIONS Home Medications: Ambulatory Orders Medication Instructions Recorded Confirmed Acetaminophen [Acetaminophen Extra 1,000 mg PO Q8H PRN #60 tablet 08/16/22 Strength] Docusate Sodium 100Mg Capsule 100 - 200 mg PO BID PRN #60 cap 08/16/22 [Colace 100Mg Capsule] Ibuprofen [Motrin] 600 mg PO Q6H PRN #30 tab 08/16/22 oxyCODONE [Roxicodone] 5 mg PO Q4H PRN #20 tablet 08/16/22 - LABS Result Diagrams: 08/15/22 05:30 08/14/22 19:25 - FOLLOW UP Follow Up: With JESU Guerra in 1 week - TIME SPENT Time Spent in Discharge (Minutes): 30"
[2022-08-17] MEDS: DOCUSATE SODIUM 100 MG CAPSULE PO SCH (09:00)
[2022-08-17] MEDS: FLUoxetine 10 MG CAPSULE PO SCH (11:22)
[2022-08-17] MEDS: SODIUM CHLORIDE FLUSH 0.9% 10 ML SYRINGE IVP SCH ×3 (12:09→12:11)
--- NOTE | 2022-08-17 12:13 | Labor Flowsheet ---
Labor Flowsheet Datetime Report Generated by CPN: 08/17/2022 12:13 Datetime: 08/17/2022 07:59 VITAL SIGNS NBP Sys/Carly/Mean (mmHg): 135 : 74 : 87 Pulse: 99 LaborFlag: Labor Datetime: 08/16/2022 17:29 SpO2 (%): 99 Datetime: 08/15/2022 04:34 Membranes Ruptured Date/Time: 08/14/2022 20:50 Membranes Rupture Method: Artificial Amniotic Fluid Color: Light Meconium Amniotic Fluid Odor: None Datetime: 08/14/2022 20:19 Patient Care Comments: Pt transferred to OR via labor bed by Beatriz STATISTICAL ANALYST, A Bielefeld, RN and Alici a Jacob, CNM. FOB accompanied Datetime: 08/14/2022 20:18 ASSESSMENT A Monitor Mode: External US Monitor Interventions for FHR: Ultrasound Adjusted FHR Baseline Rate : 140 Variability: Moderate 6-25 bpm Accelerations: None Decelerations: Variable Actions for Decelerations: Side to Side; Other Category: Category II Comments: terbutaline given Datetime: 08/14/2022 20:06 MEDICATIONS Tocolytics: Terbutaline 0.25mg Subcutaneous Datetime: 08/14/2022 20:01 Patient Position/Activity: Left Lateral COMMUNICATION Communication: Provider at Bedside Provider Notified (Name): Beatriz James CNM Communication Comments: chlorhexidine wipes to abd by CNM, no clipping of pubic hair needed Datetime: 08/14/2022 20:00 UTERINE ACTIVITY Monitor Mode: Palpation Monitor Interventions for UA: [place] Adjusted Frequency (min): 3.5-5 Quality: Moderate Pattern: Normal: <= 5 Contractions in 10 Minutes Resting Tone (Palpate): Relaxed Datetime: 08/14/2022 19:30 Duration (sec): 70 Oxygen Method: Room Air Datetime: 08/14/2022 19:11 Stage of : Labor Datetime: 08/14/2022 18:38 PATIENT CARE IV/Blood Work: IV Bolus Started Datetime: 08/14/2022 17:30 FHR Baseline Changes: No Baseline Change PAIN Pain Scale: 9 Pain Presence: Intermittent Pain Type: Contraction Pain Location: Abdomen Datetime: 08/14/2022 17:11 VAGINAL EXAM Dilatation (cm): 3.0 Effacement (%): 80 Station: -3 Exam by: Naida Ramírez RN Vaginal Bleeding: None Cervix, Consistency: Soft Cervix, Position: Posterior
--- NOTE | 2022-08-17 13:55 | PROCEDURE REPORT ---
Hospitalist Procedure Note - Procedure Note Procedure Note: I assisted the OB solutions manager in the section for this patient. My responsibilities included retracting and suctioning, providing fundal pressure during delivery and following with suture during closure. Please see the OB's note for details for the surgery.
== END 2022-08-17 11:45 | disposition home or self-care (01) | DRG 787 ==
LOC: WFO 16:49 → FBP 16:51 → WFO 20:00 → FBP 20:02
PROVIDERS: ADMIT Nurse Practitioner Obstetrics & Gynecology; ATTEND Obstetrics & Gynecology
PROC: 10D00Z1 Extraction of Products of Conception, Low, Open Approach (ICD-10-PCS; principal; 2022-08-14 20:15)
DX: O36.8330 Maternal care for abnormalities of the fetal heart rate or rhythm, third trimester, not applicable or unspecified (principal); D62 Acute posthemorrhagic anemia; O98.32 Other infections with a predominantly sexual mode of transmission complicating childbirth; A60.09 Herpesviral infection of other urogenital tract; O99.824 Streptococcus B carrier state complicating childbirth; O69.81X0 Labor and delivery complicated by cord around neck, without compression, not applicable or unspecified; Z3A.39 39 weeks gestation of pregnancy; Z37.0 Single live birth; O99.214 Obesity complicating childbirth; E66.01 Morbid (severe) obesity due to excess calories; O90.81 Anemia of the puerperium
CPT/HCPCS: 36415; 80053; 82803; 84112; 85025; 85027; 86850; 86900; 86901; A9270; J0131; J2795; J2916; J7120; 99214

== ENCOUNTER 2022-08-24 11:33 | Outpatient (CLI) | payer OTHER ==
[2022-08-24 11:53] LABS: HCT - HEMATOCRIT 30.2 % (37.0-47.0); HGB - HEMOGLOBIN 9.4 g/dL (12.0-16.0); MEAN CORPUSCULAR HEMOGLOBIN 26.9 pg (27.0-31.0); MEAN CORPUSCULAR HGB CONC 31.1 g/dL (32.0-36.0); MEAN CORPUSCULAR VOLUME 86.3 fL (81.0-99.0); RED BLOOD COUNT 3.5 10^6/uL (4.20-5.40); RED CELL DISTRIBUTION WIDTH 13.6 % (12.0-15.0); WHITE BLOOD COUNT 12.3 x10^3/uL (4.8-10.8)
== END 2022-08-24 11:34 | disposition home or self-care (01) ==
LOC: LAB 11:33
PROVIDERS: ATTEND Nurse Practitioner Obstetrics & Gynecology
DX: R55 Syncope and collapse (principal)
CPT/HCPCS: 36415; 85027

== ENCOUNTER 2022-09-29 19:14 | Emergency (ER) | payer OTHER ==
[2022-09-29 19:49] LABS: BASOPHILS % (AUTO) 0.5 %; EOSINOPHILS # (AUTO) 0.2 10^3/uL (0.0-0.7); EOSINOPHILS % (AUTO) 1.8 %; HCT - HEMATOCRIT 38.7 % (37.0-47.0); HGB - HEMOGLOBIN 12.3 g/dL (12.0-16.0); LYMPHOCYTES # (AUTO) 3.3 10^3/uL (1.5-3.5); LYMPHOCYTES % (AUTO) 39.5 %; MEAN CORPUSCULAR HEMOGLOBIN 26.3 pg (27.0-31.0); MEAN CORPUSCULAR HGB CONC 31.8 g/dL (32.0-36.0); MEAN CORPUSCULAR VOLUME 82.7 fL (81.0-99.0); MEAN PLATELET VOLUME 10.2 fL (7.9-10.8); MONOCYTES # (AUTO) 0.5 10^3/uL (0.0-1.0); MONOCYTES % (AUTO) 6.1 %; NEUTROPHILS # (AUTO) 4.4 10^3/uL (1.5-6.6); NEUTROPHILS % (AUTO) 51.4 %; PLT - PLATELET COUNT 304 10^3/uL (130-450); RED BLOOD COUNT 4.68 10^6/uL (4.20-5.40); RED CELL DISTRIBUTION WIDTH 14.4 % (12.0-15.0); WHITE BLOOD COUNT 8.5 x10^3/uL (4.8-10.8)
[2022-09-29 20:15] LABS: HCG,QUALITATIVE BLOOD NEGATIVE
--- NOTE | 2022-09-29 20:33 | ED Physician Documentation ---
History of Present Illness - Stated complaint Stated Complaint: FEM - Chief complaint Chief Complaint: Abd Pain - Additonal information Additional information: 27-year-old female presents to the emergency department for evaluation of heavy vaginal bleeding. States bleeding began this a.m. and she is using a tampon about every 2 hours. She is approximately 6 weeks . She delivered via on 14 August Due to latent labor and abnormal tracing. Patient states that she had been doing well. She continued to have a small amount of lochia until last week. She has had no fevers. Denies abdominal pain. No urinary pain. Patient is pumping/breast-feeding. 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: section - Present Medications Home Medications: Ambulatory Orders Medication Instructions Recorded Confirmed Acetaminophen [Acetaminophen Extra 1,000 mg PO Q8H PRN #60 tablet 08/16/22 Strength] Docusate Sodium 100Mg Capsule 100 - 200 mg PO BID PRN #60 cap 08/16/22 [Colace 100Mg Capsule] Ibuprofen [Motrin] 600 mg PO Q6H PRN #30 tab 08/16/22 oxyCODONE [Roxicodone] 5 mg PO Q4H PRN #20 tablet 08/16/22 FLUoxetine [PROzac] 20 mg PO DAILY 09/29/22 09/29/22 - Allergies Allergies/Adverse Reactions: Allergies Allergy/AdvReac Type Severity Reaction Status Date / Time egg Allergy Intermediate Rash Verified 08/14/22 19:42 - Social History Does the pt smoke?: No Smoking Status: Never smoker Does the pt drink ETOH?: No Does the pt have substance abuse?: No - Immunizations Immunizations are current?: No Immunizations: TDAP >10years/unknown - POLST Patient has POLST: No PD ED PE NORMAL - General General: Alert and oriented X 3, No acute distress - HEENT HEENT: PERRL - Cardiac Cardiac: RRR, No murmur - Respiratory Respiratory: No respiratory distress, Clear bilaterally - Abdomen Abdomen: Normal bowel sounds, Soft, Non tender (No abdominal tenderness elicited with light or deep palpation.) - Back Back: No CVA TTP - Derm Derm: Normal color, Warm and dry, No rash - Extremities Extremities: No deformity - Neuro Neuro: Alert and oriented X 3, 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 Eye Opening: Spontaneous Motor: Obeys Commands Verbal: Oriented GCS Score: 15 Results - Vitals Vitals: Vital Signs - 24 hr 09/29/22 09/29/22 09/29/22 19:27 20:28 22:17 Temperature 36.2 C L Heart Rate 97 87 81 Respiratory 20 18 19 Rate Blood Pressure 132/85 H 125/81 H 118/90 H O2 Saturation 100 98 99 Oxygen O2 Source Room air - Labs Labs: Laboratory Tests 09/29/22 09/29/22 09/29/22 19:45 19:45 19:45 WBC 8.5 RBC 4.68 Hgb 12.3 Hct 38.7 MCV 82.7 MCH 26.3 L MCHC 31.8 L RDW 14.4 Plt Count 304 MPV 10.2 Neut # (Auto) 4.4 Lymph # (Auto) 3.3 [place] # (Auto) 0.5 Eos # (Auto) 0.2 Baso # (Auto) 0.0 Absolute Nucleated RBC 0.00 Nucleated RBC % 0.0 Sodium 139 Potassium 3.4 L Chloride 104 Carbon Dioxide 25 Anion Gap 10.0 BUN 15 Creatinine 0.9 Estimated GFR (MDRD) 76 L Glucose 121 H Calcium 9.5 Total Bilirubin 0.5 AST 24 ALT 27 Alkaline Phosphatase 77 Total Protein 7.6 Albumin 4.3 Globulin 3.3 Albumin/Globulin Ratio 1.3 Lipase 34 Serum HCG, Qual NEGATIVE - Rads (name of study) pelvic us Relevant Findings:: Other (Per electrical design technologist no evidence of RPOC or endometriosis. Calcification may represent a uterine fibroid) PD Medical Decision Making - ED course Complexity details: reviewed results, re-evaluated patient, d/w patient ED course: This is a 27-year-old female who is approximately 6 weeks presents the emergency department for evaluation of vaginal bleeding that began today. She states that she is saturating a tampon about every 2 hours. On exam she appears remarkably well. No fever, tachycardia or hypotension. Her abdominal exam was benign with no tenderness elicited. I did obtain CBC, electrolytes and an hCG. Her anemia has resolved. Her electrolytes were without acute worrisome findings. However given status and the recent there does remain concern in the setting of heavy vaginal bleeding for retained products as well as endometritis. Pelvic ultrasound does not show any acute complications to suggest endometriosis or RPOC. Her endometrium is not thickened. there is a uterine fobroid noted, which could be contributing to the heavier than expected bleeding I briefly discussed this case with on-call OB Dr. Valdivia. She agrees that this bleeding cycle may be simply a return of her menses. Stable for discharge home with usual emergent return precautions for severe bleeding, feeling faint, lightheaded or any syncopal episodes Departure - Departure Disposition: 01 Home, Self Care Clinical Impression: Vaginal bleeding Uterine fibroid Qualifiers: Uterine leiomyoma location: unspecified location Qualified Code(s): D25.9 - Leiomyoma of uterus, unspecified Condition: Stable Record reviewed to determine appropriate education?: Yes Comments: Your ultrasound does not show any worrisome findings. There were no findings to suggest retained products of conception and/or abnormally thickened endometrium. It is possible that you do have a uterine fibroid. Your labs today were essentially normal and your vital signs were also normal. This episode of vaginal bleeding most likely represents a return to your normal menstrual cycle. I think it is okay to just continue to watch your symptoms for the next several days. If you begin to saturate a pad or tampon every 1/2 hour or hour for 6 or more hours, feel very faint or lightheaded or have any fainting episodes then you should return immediately to the ER. Please discuss this ED visit with your OB provider. Discharge Date/Time: 09/29/22 22:18
[2022-09-29 20:47] LABS: ALBUMIN 4.3 g/dL (3.2-5.5); ALBUMIN/GLOBULIN RATIO 1.3 (1.0-2.2); BILIRUBIN,TOTAL 0.5 mg/dL (0.2-1.0); CALCIUM 9.5 mg/dL (8.5-10.3); CREATININE 0.9 mg/dL (0.4-1.0); POTASSIUM 3.4 mmol/L (3.5-5.0); TOTAL PROTEIN 7.6 g/dL (6.7-8.2)
[2022-09-29 22:18] VITALS: BP 118/90
--- NOTE | 2022-09-29 22:32 | Ultrasound Report ---
PROCEDURE: Pelvic w/Transvag+Doppler Comp INDICATIONS: dysfunctional uterine bleeding TECHNIQUE: Real-time scanning was performed of the pelvic organs, with image documentation. Additional endovagi nal scanning was necessary due to incomplete visualization of the adnexal and endometrial structures by transabdominal scanning. Doppler interrogation was performed of the ovaries bilaterally. COMPARISON: None. FINDINGS: Uterus: Uterus is anteverted and normal in size at 8.8 x 3.8 x 5.0 cm. The myometrium is homogeneou s. The endometrium measures 8.2 mm in combined thickness. There is a focus of subtle echogenicity w ithin the mid anterior intramural focus of the uterus measuring 13 x 12 x 39 mm. Ovaries: The right ovary measures 4.1 x 2.6 x 3.6 cm, with a calculated ovarian volume of 19.8 cc. The left ovary measures 3.5 x 2.9 x 4.1 cm, with a calculated ovarian volume of 22.3 cc. Appropriate blood flow to the ovaries with Doppler interrogation. Less than 12 follicles can be seen in each o vary. No adnexal masses are seen. No cystic lesions measuring greater than 3 cm. Other: No pathologic free abdominal or pelvic fluid. IMPRESSION: Focus of heterogeneous echogenicity within the uterus suggestive of fibroid. Reviewed by: Cesia Napier MD on 09/29/2022 10:30 PM PDT Approved by: Cesia Napier MD on 09/29/2022 10:30 PM PDT Station ID: [id number]
== END 2022-09-29 22:18 | disposition home or self-care (01) ==
LOC: ED 19:14
DX: N93.9 Abnormal uterine and vaginal bleeding, unspecified (principal)
CPT/HCPCS: 36415; 80053; 83690; 84703; 85025; 93975; 99283; 99284

== ENCOUNTER 2023-07-08 08:00 | Outpatient (CLI) | payer OTHER ==
[2023-07-08 17:24] LABS: BILIRUBIN,URINE NEGATIVE (NEGATIVE); GLUCOSE, URINE (UA) NEGATIVE (NEGATIVE); KETONES,URINE (UA) NEGATIVE (NEGATIVE); LEUKOCYTE ESTERASE, URINE NEGATIVE (NEGATIVE); NITRITE,URINE NEGATIVE (NEGATIVE); OCCULT BLOOD,URINE NEGATIVE (NEGATIVE); PROTEIN,URINE NEGATIVE (NEGATIVE); UROBILINOGEN,URINE 0.2 (NORMAL) E.U./dL (NORMAL)
[2023-07-08 17:37] LABS: BACTERIA,URINE None Seen /HPF (None Seen); CLARITY,URINE CLEAR (CLEAR); RBC,URINE 0-5 /HPF (0-5); SQUAMOUS EPITHELIAL CELL,UR RARE Squamous (<= Few); WBC,URINE 0-3 /HPF (0-5)
== END 2023-07-08 23:59 | disposition home or self-care (01) ==
LOC: LAB.WC 08:00
PROVIDERS: ATTEND Nurse Practitioner
DX: Z34.80 Encounter for supervision of other normal pregnancy, unspecified trimester (principal)
CPT/HCPCS: 81001; 87086

== ENCOUNTER 2023-07-21 18:36 | Outpatient (CLI) | payer OTHER ==
--- NOTE | 2023-07-22 16:45 | Ultrasound Report ---
PROCEDURE: OB 1st Trimester w/TV INDICATIONS: POSITIVE TEST OUTSIDE/PRIOR DATING DATA: Last menstrual period (LMP): 05/24/2023. LMP-based estimated date of delivery (DEEPALI): 03/02/2024. First dating scan (date and location): 07/21/2023. Estimated date of delivery (DEEPALI) from first dating scan: 03/02/2024. TECHNIQUE: Real-time scanning was performed of the fetus and maternal pelvic organs, with image documentation. Endovaginal scanning was also performed to better visualize the fetus and maternal ovaries. COMPARISON: None. FINDINGS: Intrauterine gestational sac present. Embryo: Wood-Ridge-rump length is present measuring 1.5 cm corresponding to 7 weeks 0 days Heart rate: 164 bpm. Other: Small perigestational hemorrhage is present measuring 1.8 x 1.7 x 1.6 cm. Measurement variability in dating: +/- 4 weeks by LMP, +/- 7 days by mean sac diameter (use before 6 weeks gestation if crown-rump length not able to be measured), +/- 5 days by crown-rump length (6-12 weeks gestation). Maternal organs: Ovaries demonstrate left corpus luteal cyst IMPRESSION: Single live intrauterine corresponding to 7 weeks 0 days. Recommend follow-up imaging at 20-22 weeks for dates and anatomy. Reviewed by: Cesia Napier MD on 07/22/2023 4:44 PM PDT Approved by: Cesia Napier MD on 07/22/2023 4:44 PM PDT Station ID: [id number]
== END 2023-07-21 18:37 | disposition home or self-care (01) ==
LOC: DI 18:36
PROVIDERS: ATTEND Nurse Practitioner
DX: O99.211 Obesity complicating pregnancy, first trimester (principal); E66.9 Obesity, unspecified
CPT/HCPCS: 36415; 83036; 84443; 85025; 86592; 86762; 86787; 86803; 86850; 86900; 86901; 87340; 87389

== ENCOUNTER 2023-07-21 18:37 | Outpatient (CLI) | payer OTHER ==
[2023-07-21 18:53] LABS: BASOPHILS % (AUTO) 0.4 %; EOSINOPHILS # (AUTO) 0.1 10^3/uL (0.0-0.7); EOSINOPHILS % (AUTO) 1.2 %; HCT - HEMATOCRIT 38.8 % (37.0-47.0); HGB - HEMOGLOBIN 12.3 g/dL (12.0-16.0); LYMPHOCYTES % (AUTO) 29.3 %; MEAN CORPUSCULAR HEMOGLOBIN 26.5 pg (27.0-31.0); MEAN CORPUSCULAR HGB CONC 31.7 g/dL (32.0-36.0); MEAN CORPUSCULAR VOLUME 83.4 fL (81.0-99.0); MEAN PLATELET VOLUME 10.9 fL (7.9-10.8); MONOCYTES # (AUTO) 0.5 10^3/uL (0.0-1.0); MONOCYTES % (AUTO) 5.1 %; NEUTROPHILS # (AUTO) 6.5 10^3/uL (1.5-6.6); NEUTROPHILS % (AUTO) 63.3 %; PLT - PLATELET COUNT 262 10^3/uL (130-450); RED BLOOD COUNT 4.65 10^6/uL (4.20-5.40); RED CELL DISTRIBUTION WIDTH 14.9 % (12.0-15.0); WHITE BLOOD COUNT 10.3 x10^3/uL (4.8-10.8)
[2023-07-21 19:26] LABS: THYROID STIMULATING HORMONE 1.54 uIU/mL (0.34-5.60)
[2023-07-21 20:18] LABS: ESTIMATED AVERAGE GLUCOSE 103 mg/dL (70-100); HEMOGLOBIN A1c% 5.2 % (4.27-6.07)
[2023-07-23 06:12] LABS: HBsAG SCREEN Negative (Negative); RPR Non Reactive (Non Reactive)
[2023-07-23 12:09] LABS: VARICELLA-ZOSTER AB IGG 3707 index (Immune >165)
[2023-07-24 09:07] LABS: HIV SCREEN 4TH GENERATION Non Reactive (Non Reactive)
[2023-07-24 12:07] LABS: HCV AB Non Reactive (Non Reactive)
== END 2023-07-21 18:38 | disposition home or self-care (01) ==
LOC: LAB 18:37
PROVIDERS: ATTEND Obstetrics & Gynecology
DX: O99.211 Obesity complicating pregnancy, first trimester (principal); E66.9 Obesity, unspecified
CPT/HCPCS: 36415; 83036; 84443; 85025; 86592; 86762; 86787; 86803; 86850; 86900; 86901; 87340; 87389

== ENCOUNTER 2023-10-25 13:49 | Outpatient (CLI) | payer OTHER ==
--- NOTE | 2023-10-25 22:20 | Ultrasound Report ---
PROCEDURE: OB Anatomy Scan INDICATIONS: SUPERVISION OF OUTSIDE/PRIOR DATING DATA: Last menstrual period (LMP): 05/27/2023. LMP-based estimated date of delivery (DEEPALI): 03/02/2024. First dating scan (date and location): 07/21/2023. Estimated date of delivery (DEEPALI) from first dating scan: 03/02/2024. The below data below was generated using the clinical/ultrasound DEEPALI of 03/02/2024 TECHNIQUE: Real-time scanning was performed of the fetus, with image documentation and biometric measurements. Endovaginal scanning: Not performed. COMPARISON: OB ultrasound 07/21/2023 FINDINGS: General: A single living intrauterine gestation is present. Presentation: Breech Placenta: Placental position is posterior, without previa. Amniotic fluid index: 17.8 cm, within normal limits for gestational age. heart rate: 136 beats per minute. Maternal cervical canal: 4. cm long; normal length is 2.5 cm or more. biometrics: Biparietal diameter: 4.9 cm 20 weeks 6 days 23rd percentile Head circumference: 19.7 cm 21 weeks 6 days 55th percentile Abdominal circumference: 16.4 cm 21 weeks 3 days 38th percentile Femur length: 3.7 cm 21 weeks 6 days 15th percentile Estimated gestational age from initial scan: 21 weeks 4 days Composite gestational age from present scan: 20 weeks 5 days Estimated weight and percentile: 438 g 47th percentile Measurement variability in biometric dating: +/- 10 days from 12-20 weeks gestation, +/- 2 weeks from 20-30 weeks gestation, +/- 3 weeks at 30 weeks gestation or later. Anatomic survey: Neuro: Ventricles are normal at less than 10 mm. Cisterna magna is normal at 3-11 mm. Cerebellum i s normal in size and morphology. Nuchal skin fold: Normal at less than 6 mm between 14 and 20 weeks gestational age. Face: Nose and lips, facial profile are normal. Spine: No evidence for spina bifida. Heart: 4-chambered heart is present, with normal ventricular outflow tracts. Diaphragm: Diaphragm is intact. Stomach: Left-sided stomach is present. Kidneys: No hydronephrosis. Normal is less than 5 mm in 2nd trimester, less than 7 mm in 3rd trimester. Cord: 3 vessel cord has orthotopic insertion. Bladder: Normal in size. Extremities: All 4 extremities are visualized. IMPRESSION: Single live intrauterine with gestational age today of 21 weeks 5 days. Anatomy is within normal limits. Reviewed by: Cesia Napier MD on 10/25/2023 10:18 PM PDT Approved by: Cesia Napier MD on 10/25/2023 10:18 PM PDT Station ID: [id number]
== END 2023-10-25 13:50 | disposition home or self-care (01) ==
LOC: DI 13:49
PROVIDERS: ATTEND Nurse Practitioner Obstetrics & Gynecology
DX: Z34.02 Encounter for supervision of normal first pregnancy, second trimester (principal); Z36.89 Encounter for other specified antenatal screening

== ENCOUNTER 2023-11-18 10:51 | Outpatient (CLI) | payer OTHER ==
[2023-11-18 12:03] LABS: HCT - HEMATOCRIT 34.3 % (37.0-47.0); HGB - HEMOGLOBIN 11.1 g/dL (12.0-16.0); MEAN CORPUSCULAR HEMOGLOBIN 27.1 pg (27.0-31.0); MEAN CORPUSCULAR HGB CONC 32.4 g/dL (32.0-36.0); MEAN CORPUSCULAR VOLUME 83.9 fL (81.0-99.0); MEAN PLATELET VOLUME 10.2 fL (7.9-10.8); RED BLOOD COUNT 4.09 10^6/uL (4.20-5.40); RED CELL DISTRIBUTION WIDTH 13.5 % (12.0-15.0); WHITE BLOOD COUNT 10.6 x10^3/uL (4.8-10.8)
== END 2023-11-18 10:52 | disposition home or self-care (01) ==
LOC: LAB 10:51
PROVIDERS: ATTEND Nurse Practitioner Obstetrics & Gynecology
DX: Z36.9 Encounter for antenatal screening, unspecified (principal)
CPT/HCPCS: 36415; 82950; 85027

== ENCOUNTER 2024-02-28 05:28 | Inpatient (IN) ==
--- OUTSIDE RECORDS SUMMARY | 2024-01-30 14:05 | EXTERNAL MEDICAL SUMMARY RPT ---
Author Name Rosalio Alarcon Address Unknown Organization [facility] [place] Address [address] [place] [address] Phone [phone] Care Team Providers Care Terminal Operator Name Role Phone PARESH Mccall, Riley Tamayo Unavailable [phone] PROBLEMS Condition Status Date Provider Notes Encounter for other specified screening active Cira NAILS Supervision, normal , multiparous active Cira NAILS test positive active Cira NAILS Aneurysm active PARESH [place] Headache due to exertion active Arik NAILS,PARESH Nausea and vomiting active PARESH [place] Migraine active Riley NAILS,PARESH Obesity complicating , first trimester active Sushila kwok Cayabyab DO Herpes, genital active Sushila davidson Cayabyab DO Mental disorder in , first trimester active Sushila kwok [place]abyab DO Depression active Sushila Arteaga DO BMI 40-44.9 adult active Sushila Cmabkely DO test positive completed - Sushila Arteaga DO Encounter for other specified screening completed - Sushila Arteaga DO Screening examination for venereal disease active Cira NAILS Supervision of normal completed - Sushila Arteaga DO ENCOUNTERS Date Type Provider Location Encounter Diagnosis - Consultation in laboratory medicine for test interpretation Lab Report Sanam Bolton MD [facility] RHC ALLERGIES Allergy Name Onset Date Reaction Criticality Status RAW EGGS Low Criticality active FAMILY HISTORY Family Member Condition Father Seizures Father Other Cancer Mother Hypertension Aunt Stroke/CVA Maternal Grandmother Stroke/CVA HISTORY OF IMMUNIZATIONS Date Vaccine Dose Lot Number Status Fluarix Quadrivalent Intramuscular Suspension Prefilled Syringe 0.5 ML 0.5 mL [id number] completed HISTORY OF MEDICATION USE Medication Status Instructions Dates Provider Indications Com ments 28-800 mg-mcg tablet active Tracie Branch RN albuterol sulfate 90 mcg/actuation HFA aerosol inhaler active Tracie Branch RN valacyclovir 500 mg tablet active 1 tablet by mouth twice a day TAKE 1 TABLET BY MOUTH TWICE DAILY FOR 3 DAYS Danyell Daugherty [employer]OR MIXER-C fluoxetine 20 mg tablet active Sushila Arteaga DO TREATMENT PLAN Date Name TSH w/reflex A1C Varicella Zoster Vir us (VZV) Antibody, IgG Hep C AB with Reflex HIV 4TH GEN PROFILE US TRANSVAGINAL, OB US OB <14 WEEKS Urinalysis with Micr oscopic Exam, Culture in Indicated Urine C&S HISTORY OF PROCEDURES Procedure Date Procedure Name Provider Procedure Notes S tatus CMP-Comprehensive Metabolic Sanam Bolton MD completed POC CHORIONIC GONADOTROPIN ASSAY iCra NAILS completed Ketorolac Tromethami ne 30 mg/ml Candie NAILS,TIRE AND TUBE REPAIRER completed Diphenhydramine caps ules 25 mg Riley NAILS,TIRE AND TUBE REPAIRER completed Ondansetron 4 mg Riley NAILS,TIRE AND TUBE REPAIRER completed Visit Code Hold JAYLON MiguelP completed Visit Code Hold Danyell Daugherty COLOR MIXER-C completed First Ix admin via I D IM or jet injects with counseling by physician for adult Sushila Arteaga DO completed Fluarix Quadrivalent Intramuscular Suspension Prefilled Syringe 0.5 ML Sushila Arteaga DO completed POC CHORIONIC GONADOTROPIN ASSAY Cira NAILS completed RESULTS Date Observation Value Provider Reference Range Interpretation Location 8 Hepatitis C Virus Ab Non Reactive [facility] Non Reactive 8 HIV-1/2 antigen / antibody, 4th generation Non Reactive [facility] Non Reactive 8 varicella zoster antibody, IgG, serum 3707 [facility] Immune >165 8 rapid plasma reagin antibody, serum Non Reactive [facility] Non Reactive 8 hepatitis B surface antigen Negative [facility] Negative 8 hemoglobin A1C, blood, as % of total hemoglobin 5.2 % [facility] 4.27-6.07 Normal 8 rubella antibody, serum, IgG 90 [facility] 8 TSH mIU/L 1.54 mIU/L [facility] 0.34-5.60 Normal 8 basophil count, blood 0.0 10 3/UL [facility] 0.0-0.1 Normal 8 eosinophil count, blood 0.1 10 3/UL [facility] 0.0-0.7 Normal 8 monocyte count, blood 0.5 10 3/UL [facility] 0.0-1.0 Normal 8 lymphocyte count, blood 3.0 10 3/UL [facility] 1.5-3.5 Normal 8 neutrophil count, blood 6.5 10 3/UL [facility] 1.5-6.6 Normal 8 mean platelet volume 10.9 fL [facility] 7.9-10.8 High 8 platelet count 262 10 3/UL [facility] 130-450 Normal 8 red blood cell distribution width 14.9 % [facility] 12.0-15.0 Normal 8 mean corpuscular hemoglobin concentration, rbc 31.7 g/dL [facility] 32.0-36.0 Low 8 mean corpuscular hemoglobin, RBC 26.5 pg [facility] 27.0-31.0 Low 8 mean corpuscular volume, RBC 83.4 fL [facility] 81.0-99.0 Normal 8 hematocrit, blood 38.8 % [facility] 37.0-47.0 Normal 8 hemoglobin, blood 12.3 g/dL [facility] 12.0-16.0 Normal 8 erythrocyte (RBC) count 4.65 10 6/UL [facility] 4.20-5.40 Normal 8 leukocyte count, blood 10.3 X10 3/UL [facility] 4.8-10.8 Normal SOCIAL HISTORY Date Observation Value Provider seatbelt usage 100 % Tracie Branch RN exercise type walks Tracie Olguin physical exercise, frequency, days per week 3 /wk Tracie Branch RN caffeine use, averag e drinks per day 1 /d Tracie Branch RN social history E&M Patient has n ever smoked.; Patient has never used smokeless tobacco.; Patient has never used vaping / e-cigarette.; Passive Smoke: N; Alcohol Use: N; Drug Use: N; Marijuana Use: N; HIV/High Risk: N; Regular Exercise: Y; Hx Domestic Abuse: N; Jewish Affecting Care: N; Sexually Active: Y; Tracie Branch RN if the patient is us ing/has used a vaping item, Current, Former, Never Used, Not asked Never Tracie Branch RN domestic abuse, hx of no Tracie Branch RN drug use no Tracie Branch RN alcohol use no Tracie Branch RN passive cigarette sm lotus exposure no Tracie Branch RN chewing tobacco use Never Tracie neal RN smoking status Never smoker Tracie Branch RN social history reviewed E&M revi ewed - no changes required Tracie Branch RN personal history of marijuana use no Tracie Branch RN number of children 1 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 exercise type walks Latosha Soto calixto [facility] physical exercise, frequency, days per week 3 /wk Latosha A Arabeck [facility] caffeine use, averag e drinks per day 1 /d Latosha A [place] [facility] smoking status Never smoker Latosha A Ara tariq [facility] drug use no Latosha A Nettlebe ck [facility] alcohol use no Latosha A [place] ck [facility] passive cigarette sm lotus exposure no Latosha A N[place]beck [facility] chewing tobacco use Never Latosha A N ettlebeck 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 Cira CARUSOP seatbelt usage 100 % Cira ramírez [facility] exercise type walks Cira machado [facility] physical exercise, frequency, days per week 3 /wk Cira Mishra [facility] caffeine use, averag e drinks per day 1 /d Cira CARUSOP social history E&M Patient has n ever smoked.; Patient has never used smokeless tobacco.; Passive Smoke: N; Alcohol Use: N; Drug Use: N; HIV/High Risk: N; Regular Exercise: Y; Hx Domestic Abuse: N; Jewish Affecting Care: N; Sexually Active: Y; Cira CARUSOP domestic abuse, hx of no Cira Mishra [facility] drug use no Cira sanchez [facility] alcohol use no Cira CARUSOP passive cigarette sm lotus exposure no Cira Mishra [facility] chewing tobacco use Never Cira Mishra [facility] social history reviewed E&M revi ewed - no changes required Cira Mishra [facility] smoking status Never smoker Cira ramírez [facility] VITAL SIGNS Date Observation Value Provider height E&M 66 [in_i] Tracie Branch RN Body Mass Index (Ratio) 38.94 kg/m2 Papi Hernandez RN weight E&M 240.4 [lb_av] Tracie Branch R N temperature E&M 98.1 [degF] Michell rosales RN pulse rate 94 /min Michell Estevez RN blood pressure, cuff size regular Petr Estevez RN blood pressure, site #1 R. arm sitting Petr Estevez RN blood pressure, diastolic 91 mm[Hg] Petr Estevez RN blood pressure, systolic 141 mm[Hg] Nilda Estevez RN respiratory rate E&M 16 /min Michell abebe RN temperature site temporal Michell witt RN Body Mass Index (Ratio) 37.14 kg/m2 Michell Estevez RN weight E&M 229.3 [lb_av] Michell Estevez RN height E&M 66 [in_i] Michell Estevez RN blood pressure, diastolic 75 mm[Hg] Ma ry A [place] INSIGHTS STRATEGIST blood pressure, systolic 110 mm[Hg] Corina y A [place] INSIGHTS STRATEGIST pulse rate 81 /min Latosha A Nettlebe ck INSIGHTS STRATEGIST respiratory rate E&M 16 /min Latosha A [place] INSIGHTS STRATEGIST temperature E&M 97 [degF] Latosha Kwok [place] INSIGHTS STRATEGIST Body Mass Index (Ratio) 37.91 kg/m2 Latosha A [place] INSIGHTS STRATEGIST weight E&M 234 [lb_av] Latosha A [place] ck INSIGHTS STRATEGIST blood pressure, cuff size regular Ma ry A [place] INSIGHTS STRATEGIST blood pressure, site #1 L. arm sitting Niko berg A [place] INSIGHTS STRATEGIST temperature site oral Latosha A Nett lebeck INSIGHTS STRATEGIST height E&M 66 [in_i] Latosha A [place]be ck INSIGHTS STRATEGIST albumin, serum 2.9 g/dL [facility] albumin, serum 3.1 g/dL [facility]
[2024-02-28] MEDS ORDERED: LACTATED RINGERS 1,000 ML IV SCH ×2 (06:00→08:00)
[2024-02-28] MEDS: ACETAMINOPHEN 500 MG TABLET PO ONE (06:07)
[2024-02-28 06:41] LABS: BASOPHILS % (AUTO) 0.5 %; EOSINOPHILS # (AUTO) 0.1 10^3/uL (0.0-0.7); EOSINOPHILS % (AUTO) 1.4 %; HCT - HEMATOCRIT 32.4 % (37.0-47.0); HGB - HEMOGLOBIN 10.7 g/dL (12.0-16.0); LYMPHOCYTES # (AUTO) 2.5 10^3/uL (1.5-3.5); LYMPHOCYTES % (AUTO) 31.1 %; MEAN CORPUSCULAR VOLUME 81.8 fL (81.0-99.0); MEAN PLATELET VOLUME 11.5 fL (7.9-10.8); MONOCYTES # (AUTO) 0.8 10^3/uL (0.0-1.0); MONOCYTES % (AUTO) 9.7 %; NEUTROPHILS # (AUTO) 4.5 10^3/uL (1.5-6.6); NEUTROPHILS % (AUTO) 55.2 %; PLT - PLATELET COUNT 180 10^3/uL (130-450); RED BLOOD COUNT 3.96 10^6/uL (4.20-5.40); RED CELL DISTRIBUTION WIDTH 14.1 % (12.0-15.0); WHITE BLOOD COUNT 8.1 x10^3/uL (4.8-10.8)
[2024-02-28] MEDS ORDERED: OXYTOCIN 10 UNIT/ML VIAL ONE (07:23)
[2024-02-28] MEDS ORDERED: OXYTOCIN/SODIUM CHLORIDE 500 ML IV ONE (07:24)
[2024-02-28] MEDS: CITRIC ACID/SODIUM CITRATE 15 ML UDC PO ONE (07:25)
--- NOTE | 2024-02-28 07:28 | HISTORY & PHYSICAL EXAMINATION ---
Admit History Smoking Status: Never smoker Other Maternal History Other Maternal History: Expected Delivery Route/Plan Repeat : Wash and instructions given to patient. Specific Issues/Plans LMP: 05/27/2023 DEEPALI by LMP: 03/02/2024 US: c/w LMP Final DEEPALI: 03/02/2024 Pre- Weight: 260 BMI: 38 Blood type: O+ Antibody: Negative CBC: PLT 262 HCT 38.8 HGB 12.3 RUB: Immune VZV: Immune HBsAg: Negative HepC: NR RPR/AB-EIA: NR HIV: NR PAP: 08/24/2022 normal, hx ASCUS; REPEAT GC/CT: HSV: POSITIVE suppressive therapy @ 36wks Genetic testin08/17/23 Myraid: Negative Covid: Flu: 01/13/2024 RSV: 01/13/2024 FAS: 10/25/2023 Placenta: Posterior Cord: 3VC KAROLINA: 17.8cm EFW: 438g; 47th%tile 50gm OGCT: 133 TDAP: 12/19 Breast Pump: 12/19 Antibody screen: 3rd trimester PLT 214 HCT 34.3 HGB 11.1 3rd trimester RPR GBS: Delivery plan: Repeat MOD: Repeat Contraception: Post placental Mirena OB Visit Log Initial Weight: 260 lb Date EGA Weight BP Fundal ht Pres HR Movement CTX Edema Cerv Dil Cerv Eff % Sta 01/13/24 33w 0d 252 lb 8 oz(-7 lb 8 oz) 104/60 37 140 active absent absent 01/18/24 33w 5d 127/67 125 active absent ab sent 02/01/24 35w 5d 253 lb(-7 lb) 130/76 38 Cephalic 130 active abs ent absent 02/09/24 36w 6d 121/68 135 active absent ab sent 02/14/24 37w 4d 252 lb(-8 lb) 115/63 39 vtx 135 active abs ent absent 02/22/24 38w 5d 253 lb(-7 lb) 113/73 135 active absen t Notes Visit Date: 02/22/24 Last Updated by: Leroy Calderon MD -Doing very well today. Discussed upcoming surgery. Discussed labor precautions and preeclampsia precautions. - section was recommended. Risks, benefits and alternatives were discussed including but not limited to infection, bleeding that may require blood products or hysterectomy for life saving measures, injury to surrounding organs including but not limited to bowel, bladder, ureters, tubes and ovaries and/or the baby. Should injury occur it could require longer/additional surgery to repair. The patient stated understanding and desired to proceed. All questions were answered posed by patient. -Consent signed Visit Date: 02/14/24 Last Updated by: JESU Wright Surgical preparation - Scheduled for surgery on 02/27 at 7:30 - Operating team to call the night before - Informed about hospital room amenities: - Refrigerators available - Option to bring own food and drinks - Partner tray and [employer] services available Previous surgical experience - Experienced nausea during previous surgery - Vomited and had it suctioned out of mouth - Advised to inform anesthesia team about this experience IUD discussion - Discussed post placental IUD placement. - Options considered: Mirena, Kyleena, Janeth, and ParaGard - Mirena recommended due to history of heavy periods - Patient had Mirena IUD before and liked it - Experienced very light periods with it Other information - Attended a performance of [employer] in [place] - Described it as "awesome" - Baby would start dancing during songs Reactive NST ~KJB Visit Date: 02/09/24 Last Updated by: JESU Wright Doing well physically. Baby has been active. Kick counts discussed with Dr. Calderon last appointment. Having more anxiety than she remembers at this time last . Feels she is coping well and has available resources. No safety concerns, she is just open about things that are worrisome to her. Reactive NST today~KJB Visit Date: 02/01/24 Last Updated by: Leroy Calderon MD Good movement, but does say she occasionally feels less, and thinks about doing kick counts, but then starts moving and is relieved. Should keep an eye on this. Discussed kick counts for further and that she should use this as a tool. No contractions, leaking, bleeding. section was recommended. Risks, benefits and alternatives were discussed including but not limited to infection, bleeding that may require blood products or hysterectomy for life saving measures, injury to surrounding organs including but not limited to bowel, bladder, ureters, tubes and ovaries and/or the baby. Should injury occur it could require longer/additional surgery to repair. The patient stated understanding and desired to proceed. All questions were answered posed by patient. Plan on repeat section at 39 weeks. Visit Date: 01/18/24 Last Updated by: JESU Wright - (previous for distress) - Currently with second child, a girl (Gloria) Recent events: - Fell at [employer] [place] earlier today from height of ~3 feet while holding 1.5 year old child, then accidently tossed him with the fall. - Landed on belly - Experiencing some tenderness in area, denies bleeding/leaking/contractions - Monitoring symptoms since fall around 12pm, now after 15:30. Agreeable to NST/monitoring through 1600 or 4 hour isha past fall. Has not had any contractions, cramping, leaking or bleeding. Reactive NST. FHT baseline 120, moderate variability + accelerations, no decelerations and no uterine activity. Abdomen palpated softly. Baby active by BSUS. NST on paper only. Unable to connect to remote monitoring. Patient feels comfortable going home with strict precautions to include monitoring for abdominal discomfort, abdominal pain, bleeding, cramping or alma. Reviewed she should have a low threshold for return to clinic with any changes. Family history: - Sister had premature rupture of membranes not too long ago following a MVA. - Describes area of tenderness as "a little here" when touched - Incident occurred in [place] where mother lives Visit Date: 01/13/24 Last Updated by: Beatriz James CNM, JESU Fanny reports she is doing well. She is feeling much improved since our last visit when she was feeling increased nausea. This has improved with consistent use of pepcid. Occasionally requires use of zofran but overall feeling controlled without. Desires influenza and RSV vaccinations today. Declines COVID vaccine. Uterine size > dates today - growth and KAROLINA ordered. Will schedule next visit with Dr. Calderon for surgical consultation for repeat delivery which she is feeling good about. HPI Current : Current EDU 03/02/24 Gestation 39 Weeks and 4 Days Para 1 Vital Signs NST Procedure NST Procedure: NST Procedure Start Date 02/28/24 Start Time 05:45 Stop Time 06:10 Vibroacoustic Stimulation Used No Patient States Movement Yes Meds/Allgy Home Medications Ambulatory Orders Medication Instructions Recorded Confirmed acetaminophen 500 mg tablet 1,000 mg (2 x 500 mg) PO Q8H PRN 08/16/22 02/27/24 (Acetaminophen Extra Strength) Pain #60 tabs fluoxetine 10 mg capsule 20 mg PO DAILY 09/29/22 02/27/24 albuterol sulfate 90 mcg/actuation 2 puff inhalation Q6H PRN 01/13/24 02/27/24 aerosol inhaler (Proventil HFA) shortness of breath or wheezing vits no.126-ferrous fum tab PO DAILY 01/13/24 02/22/24 28 mg iron-folic acid 800 mcg tablet (Classic ) valacyclovir 500 mg tablet 500 mg PO BID 30 days #60 tabs 02/01/24 02/27/24 Allergies Allergies Allergy/AdvReac Type Severity Reaction Status Date / Time egg Allergy Intermediate Rash Verified 02/01/24 15:31 [facility] Medical History Medical History (Updated 02/16/24 @ 17:41 by Leroy Calderon MD) Depression (02/04/22) Aneurysm (03/21/23) Chronic headaches BMI 40.0-44.9, adult Anxiety associated with depression Surgical History Surgical History (Updated 01/13/24 @ 19:19 by Beatriz James CNM, JESU) H/O: Hx of tonsillectomy H/O sinus surgery Family History Family History (Updated 01/13/24 @ 08:56 by Glory Almaguer MA) Maternal grandmother CVA (cerebral vascular accident) Aunt CVA (cerebral vascular accident) Mother High blood pressure Anxiety Paternal grandfather FH: stomach cancer Alzheimers disease Father Seizures Social History Social History (Updated 02/27/24 @ 13:18 by Beatriz Seymour, RN, BSN) Smoking Status: Never smoker Do you dip or chew tobacco?: No Patient requests smoking cessation consult: No Initiate information on smoking cessation: No Living arrangement: At home Marital Status: Living Condition: With spouse/s.o. Support Person: Yes Relationship: Spouse Level: Independent History of Abuse: No ETOH Use: None Substance Use: denies use Are you sexually active?: Yes POLST Patient has POLST: No Physical Abdominal Exam Vital Signs: Temp Pulse Resp BP 97.7 C H 85 14 129/74 02/28/24 06:10 02/28/24 06:10 02/28/24 06:10 02/28/24 06:10 General: Alert, oriented, no acute distress Head: Normal cephalic atraumatic Eyes: PERRLA, extraocular motions intact. Respiratory: Normal rate of respiration. No accessory muscle use, normal respiratory effort. Cardiovascular: Regular rate and rhythm Abdomen: Gravid, nontender, nondistended Extremities: Normal range of motion Neuro: Oriented x3. Normal movements Psych: Appropriate mood and affect. Normal judgment and insight FHT: 125 beats minute baseline, moderate variability, accelerations present, no decelerations. Reactive NST [place]: Irregular Plan for Labor Plan For Labor I expect patient to be DC'd or transferred within 96 hours.: Yes Conclusion/Plan Problem List (1) Maternal care due to low transverse uterine scar from previous delivery: Plan: -Plan for repeat low-transverse section. Patient previously counseled in previous encounter. Consent signed and in chart. -Plan for 2 g cefazolin IV prior to surgery. (2) Herpes genitalis in women: Plan: -Has been on prophylaxis and no symptoms. (3) BMI 40.0-44.9, adult: Plan: -Care with incision and infection risk Lab Results 02/28/24 06:00
[2024-02-28] MEDS ORDERED: METOCLOPRAMIDE 10 MG/2 ML VIAL IVP PRN (07:36)
[2024-02-28] MEDS ORDERED: MORPHINE 2 MG/ML CARPUJECT IVP PRN (07:36)
[2024-02-28] MEDS ORDERED: ATROPINE ABBOJECT 1 MG/10 ML SYRINGE IVP PRN (07:36)
[2024-02-28] MEDS ORDERED: fentaNYL 100 MCG/2 ML VIAL IVP PRN (07:36)
[2024-02-28] MEDS ORDERED: NALOXONE 0.4 MG/ML VIAL IVP PRN ×2 (07:36→10:28)
[2024-02-28] MEDS ORDERED: ONDANSETRON 4 MG/2 ML VIAL IVP PRN (07:36)
[2024-02-28] MEDS ORDERED: ePHEDrine 50 MG/ML VIAL IVP PRN (07:36)
[2024-02-28] MEDS ORDERED: HYDROmorphone 0.5 MG/0.5 ML SYRINGE IVP PRN (07:36)
--- NOTE | 2024-02-28 07:36 | ANESTHESIA PROCEDURE NOTE ---
Pre-Anesthesia VS, & Labs Diagnosis Surgical Diagnosis:: repeat C/S Procedure Procedure: C/S Vitals Vital Signs: Temp Pulse Resp BP 97.7 C H 85 14 129/74 02/28/24 06:10 02/28/24 06:10 02/28/24 06:10 02/28/24 06:10 NPO NPO: >8 hours Is Patient ?: Yes Lab Results Current Lab Results: Laboratory Tests 02/28/24 06:00: WBC 8.1, RBC 3.96 L, Hgb 10.7 L, Hct 32.4 L, MCV 81.8, MCH 27.0, MCHC 33.0, RDW 14.1, Plt Count 180, MPV 11.5 H, Neut # (Auto) 4.5, Lymph # (Auto) 2.5, Vance # (Auto) 0.8, Eos # (Auto) 0.1, Baso # (Auto) 0.0, Absolute Nucleated RBC 0.00, Nucleated RBC % 0.0, Blood Type O POSITIVE, Antibody Screen NEGATIVE Lab results reviewed: Yes 02/28/24 06:00 Meds/Allgy Home Medications Ambulatory Orders Medication Instructions Recorded Confirmed acetaminophen 500 mg tablet 1,000 mg (2 x 500 mg) PO Q8H PRN 08/16/22 02/27/24 (Acetaminophen Extra Strength) Pain #60 tabs fluoxetine 10 mg capsule 20 mg PO DAILY 09/29/22 02/27/24 albuterol sulfate 90 mcg/actuation 2 puff inhalation Q6H PRN 01/13/24 02/27/24 aerosol inhaler (Proventil HFA) shortness of breath or wheezing vits no.126-ferrous fum tab PO DAILY 01/13/24 02/22/24 28 mg iron-folic acid 800 mcg tablet (Classic ) valacyclovir 500 mg tablet 500 mg PO BID 30 days #60 tabs 02/01/24 02/27/24 Allergies Allergies Allergy/AdvReac Type Severity Reaction Status Date / Time egg Allergy Intermediate Rash Verified 02/01/24 15:31 PFSH Medical History Medical History (Updated 02/16/24 @ 17:41 by Leroy Calderon MD) Depression (02/04/22) Aneurysm (03/21/23) Chronic headaches BMI 40.0-44.9, adult Anxiety associated with depression Surgical History Surgical History (Updated 01/13/24 @ 19:19 by Beatriz James, CNM, STEEL C[employer]TER) H/O: Hx of tonsillectomy H/O sinus surgery Family History Family History (Updated 01/13/24 @ 08:56 by Glory Almaguer MA) Maternal grandmother CVA (cerebral vascular accident) Aunt CVA (cerebral vascular accident) Mother High blood pressure Anxiety Paternal grandfather FH: stomach cancer Alzheimers disease Father Seizures Social History Social History (Updated 02/27/24 @ 13:18 by Beatriz Seymour, RN, BSN) Smoking Status: Never smoker Do you dip or chew tobacco?: No Patient requests smoking cessation consult: No Initiate information on smoking cessation: No Living arrangement: At home Marital Status: Living Condition: With spouse/s.o. Support Person: Yes Relationship: Spouse Level: Independent History of Abuse: No ETOH Use: None Substance Use: denies use Are you sexually active?: Yes POLST Patient has POLST: No Anesthesia Exam (Expanded) Exam General: Alert and Oriented x3 Dental: WNL Mouth Opening: Greater than 4 Fingerbreadths Neck Mobility: Normal Mallampati classification: II Thyromental Distance: greater than 6 cm Respiratory: Lungs clear Cardiovascular: Regular rate Plan Problem List (1) Maternal care due to low transverse uterine scar from previous delivery: Plan: -Plan for repeat low-transverse section. Patient previously counseled in previous encounter. Consent signed and in chart. -Plan for 2 g cefazolin IV prior to surgery. (2) Herpes genitalis in women: Plan: -Has been on prophylaxis and no symptoms. (3) BMI 40.0-44.9, adult: Plan: -Care with incision and infection risk Plan Anesthesia Type: Spinal and Transverse Abdominis Plane (TAP) Block Consent for Procedure(s) Verified and Reviewed: Yes Code Status: Attempt Resuscitation ASA Classification ASA classification: 2-Mild systemic disease Is this case an emergency?: No
[2024-02-28] MEDS: ceFAZolin (2G) 2 GM in SODIUM CHLORIDE 0.9% MINIBAG 100 ML IV ONE (08:00)
[2024-02-28] MEDS ORDERED: LEVONORGESTREL 20 MCG/24H IUD IY ONE (08:10)
[2024-02-28] MEDS ORDERED: ePHEDrine 50 MG/ML VIAL IVP ONE (08:17)
[2024-02-28] MEDS ORDERED: ROPIVACAINE 0.5% PF 20 ML VIAL ONE ×2 (08:32→08:34)
[2024-02-28] MEDS ORDERED: DEXAMETHASONE 4 MG/ML VIAL ONE (08:38)
[2024-02-28] MEDS ORDERED: ACETAMINOPHEN IV ONE (08:54)
--- NOTE | 2024-02-28 09:45 | OPERATIVE REPORT ---
Operative Report General Admit Date: 02/28/24 Procedure Data: Operation Date: 02/28/24 07:30 Proposed Procedures p Section(Not Applicable) - Leroy Calderon MD Actual Procedures p Section(Not Applicable) - Leroy Calderon MD Pre-Op Diagnosis: previous section Pre-Op Diagnosis: Previous Section Anesthesia Type Spinal Case Staff Anesthesia Provider: Kala Davies Assisting Provider: Beatriz James Times Into Recovery: 02/28/24 09:31 Procedure Start: 02/28/24 08:12 Procedure End: 02/28/24 09:07 Time out: 02/28/24 08:10 Pre-Op Diagnosis: Previous low-transverse section Post Op Diagnosis: Status post repeat low-transverse section Procedure Note Intake, IV Amount (ml): 800 Estimated Blood Loss (ml): 750 Output, Urine Amount (ml): 100 Pathology: None Findings: Normal-appearing uterus, tubes, ovaries. Prominent uterine vessels. Complications: None Other Other Information/Narrative: section was recommended. Risks, benefits and alternatives were discussed including but not limited to infection, bleeding that may require blood products or hysterectomy for life saving measures, injury to surrounding organs including but not limited to bowel, bladder, ureters, tubes and ovaries and/or the baby. Should injury occur it could require longer/additional surgery to repair. The patient stated understanding and desired to proceed. All questions were answered posed by patient. Prior to being taken to the OR, 2 grams of cefazolin IV was administered. The patient was taken to the operating room where regional anesthesia was found to be adequate. She was then prepared and draped in the usual sterile fashion in th e dorsal supine position with a leftward tilt displacing the uterus. Dyer was draining to gravity. SCDs were on bilateral lower extremities. Time out was taken. A pfannenstiel skin incision was then made with the scalpel and carried through to the underlying layer of fascia. The fascia was incised in the midline and the incision extended laterally with the Artis scissors. The superior aspect of the facial incision was then grasped with the Cristian clamps, elevated and the underlying rectus muscles dissected off sharply. Attention was then turned to the inferior aspect of this incision which in a similar fashion was grasped, elevated with the Cristian clamps and the rectus muscle dissected off sharply. The rectus muscles were in the midline. The peritoneum identified, grasped with the pick-ups and entered sharply with the Metzenbaum scissors. The peritoneal incision was then extended superiorly and inferiorly with good visualization of the bladder. The bladder blade was inserted. The vesicouterine peritoneum was identified, grasped with the pick-ups, and entered sharply with Metzenbaum scissors. This incision was then extended laterally and the bladder flap created digitally. The bladder blade was reinserted. The lower uterine segment was identified and incised in a transverse fashion with the scalpel. The uterine incision was then extended bluntly laterally. Artificial rupture of membranes demonstrated clear fluid. The bladder blade was removed. The fetus was in a cephalic presentation. The infants head delivered atraumatically. The anterior shoulders were delivered followed by the posterior shoulders then the remainder of the body. The infants mouth and nose were bulb suctioned. The umbilical cord was clamped times two and cut. The was handed to the pediatric team. The placenta was removed with gentle traction. Oxytocin was added to the IV fluid and was allowed to run freely. The uterus was exteriorized and cleared of all clots and debris. The uterine incision was inspected and found to be without any extensions and was repaired with 0 Vicryl in a running, locked fashion. During the closure, the lower uterine segment tore through multiple times due to the thinness, but was repaired with small stitches. A second imbricating layer was performed. She had some oozing from the bladder flap that did not respond completely to cautery, so Surgicel was placed over the wound. Upon inspection, the repaired hysterotomy was found to be hemostatic. The uterus was firm and returned to the abdomen. The gutters were cleared of all clots and debris. The muscle layer was examined and found to be hemostatic. The fascia was reapproximated with 0 Vicryl in a running fashion. The subcutaneous tissue was closed with 2-0 Vicryl. The skin was closed in a subcuticular fashion with 4-0 Monocryl. The patient tolerated the procedure well. Sponge, lap and needle counts were correct times three. The patient was taken to the recovery room in stable condition. I appreciate the assistance of JESU Guerra during this procedure, and the assistance in retraction, visualization, dissection, and overall assistance during the case were instrumental to the patient's wellbeing. We did initially talk about an IUD placement at time of surgery, but in the repair and attempts at stopping the bleeding, we close too much of the uterus to adequately place the IUD and decided that rather than opening and risking trouble closing the layers that had torn, discussed waiting till 6 weeks to complete the IUD placement.
[2024-02-28] MEDS ORDERED: LACTATED RINGERS 1,000 ML ONE (10:27)
[2024-02-28] MEDS ORDERED: LABETALOL 20 MG/4 ML SYRINGE IVP PRN ×3 (10:28)
[2024-02-28] MEDS ORDERED: NIFEdipine 10 MG CAPSULE PO PRN (10:28)
[2024-02-28] MEDS ORDERED: oxyCODONE 5 MG TABLET PO PRN (10:28)
[2024-02-28] MEDS ORDERED: OXYTOCIN/SODIUM CHLORIDE 500 ML IV PRN (10:28)
[2024-02-28] MEDS ORDERED: hydrALAZINE INJ 20 MG/ML VIAL IVP PRN ×2 (10:28)
[2024-02-28] MEDS: LACTATED RINGERS 1,000 ML IV SCH (10:37)
--- NOTE | 2024-02-28 10:41 | ANESTHESIA POST OP EVALUATION ---
Anesthesia Post Eval Post Anesthesia Eval Vitals: Last Vital Signs Temp 36.6 C 02/28/24 10:10 Pulse 76 02/28/24 10:10 Resp 18 02/28/24 10:10 BP 115/83 02/28/24 10:10 Pulse Ox 99 02/28/24 10:10 CV Function Including HR & BP: Stable Pain Control: Satisfactory Nausea & Vomiting: Negative Mental Status: Baseline Respiratory Status: Airway Patent Hydration Status: Satisfactory Anesthesia Complications: None
--- NOTE | 2024-02-28 10:59 | PHARMACY PROGRESS NOTE ---
Best Possible Medication History Admit Date and Time: 02/28/24 [id number] Home Medications Medication Instructions Recorded Confirmed Type acetaminophen 500 mg tablet 1,000 mg (2 x 500 mg) PO Q8H PRN 08/16/22 02/27/24 Rx (Acetaminophen Extra Strength) Pain #60 tabs fluoxetine 10 mg capsule 20 mg PO DAILY 09/29/22 02/27/24 History albuterol sulfate 90 mcg/actuation 2 puff inhalation Q6H PRN 01/13/24 02/27/24 History aerosol inhaler (Proventil HFA) shortness of breath or wheezing vits no.126-ferrous fum 1 tab PO DAILY 01/13/24 02/28/24 History 28 mg iron-folic acid 800 mcg tablet (Classic ) valacyclovir 500 mg tablet 500 mg PO BID PRN outbreak 02/28/24 02/28/24 History Processed by: Pharmacy (Medication Reconciliation completed by Plant OperatorTammy) Medications reviewed in ED?: No Medication History completed: Yes Patient Interview: Completed Secondary Source(s): Insurance records [facility] Statement: As the person ultimately responsible for medication therapy, providers are able to order a medication from an existing home medication list in [facility] via the "Reconcile Routine" prior to Confirmation of that medication by marketing support manager. Such practice is discouraged except when the physician, in their clinical judgment, deems that a medical need exists for a medication without regard to previous use.
[2024-02-28] MEDS: KETOROLAC 30 MG/ML VIAL IVP SCH (11:07)
[2024-02-28] MEDS: ACETAMINOPHEN 500 MG TABLET PO SCH (13:11)
[2024-02-28] MEDS: FLUoxetine 10 MG CAPSULE PO SCH (20:47)
[2024-02-28] MEDS: DOCUSATE SODIUM 100 MG CAPSULE PO SCH (22:08)
[2024-02-29] MEDS: LEVONORGESTREL 20 MCG/24H IUD IY ONE (05:16)
[2024-02-29] MEDS: IBUPROFEN 600 MG TABLET PO SCH (05:59)
[2024-02-29 09:31] LABS: HCT - HEMATOCRIT 26.2 % (37.0-47.0); HGB - HEMOGLOBIN 8.5 g/dL (12.0-16.0); MEAN CORPUSCULAR HEMOGLOBIN 26.7 pg (27.0-31.0); MEAN CORPUSCULAR HGB CONC 32.4 g/dL (32.0-36.0); MEAN CORPUSCULAR VOLUME 82.4 fL (81.0-99.0); MEAN PLATELET VOLUME 10.9 fL (7.9-10.8); RED BLOOD COUNT 3.18 10^6/uL (4.20-5.40); RED CELL DISTRIBUTION WIDTH 14.2 % (12.0-15.0); WHITE BLOOD COUNT 11.3 x10^3/uL (4.8-10.8)
--- NOTE | 2024-02-29 10:46 | Discharge Summary ---
Discharge Summary Admit Date: 02/28/24 Discharge Date: 02/29/24 Discharging Provider: Leroy Calderon MD Code Status: Attempt Resuscitation DIAGNOSES Admission Diagnoses: 39 weeks gestation Previous low-transverse section Vulvovaginal HSV Obesity Discharge Diagnoses with Status of Each Condition: 125 beats minute baseline, moderate variability, accelerations present, no decelerations. Reactive NST HPI History of Present Illness: Subjective Patient reports she is doing well. Lochia appropriate. Denies heavy bleeding. Ambulating. Pelvic and abdominal pain well-controlled. Tolerating oral intake. Diet: Regular. Voiding without difficulty. Passing flatus. Denies BM. Patient is bonding with baby in room Breast feeding going well. Denies feeling lightheaded, dizzy or excessively fatigued. Objective General: Alert, oriented, no apparent distress. Cardiovascular: Regular rate. Regular rhythm. Lungs: No increased work of breathing. Abdomen: Uterus firm. Below umbilicus. No guarding or rebound. Extremities: No pain on palpation. No cords palpated. Distal pulses intact. Incision: Clean, dry, and intact. HOSPITAL COURSE Hospital Course: Patient was admitted at 39 weeks gestation for planned repeat section. section was unremarkable and she delivered a healthy . recovery for her and her were uneventful and she was discharged on postoperative day 1 at patient's request. weight 3510 g, Apgars 8/9. ALLERGIES Allergies Allergy/AdvReac Type Severity Reaction Status Date / Time egg Allergy Intermediate Rash Verified 02/01/24 15:31 MEDICATIONS Ambulatory Orders Medication Instructions Recorded Confirmed acetaminophen 500 mg tablet 1,000 mg (2 x 500 mg) PO Q8H PRN 08/16/22 02/27/24 (Acetaminophen Extra Strength) Pain #60 tabs fluoxetine 10 mg capsule 20 mg PO DAILY 09/29/22 02/27/24 albuterol sulfate 90 mcg/actuation 2 puff inhalation Q6H PRN 01/13/24 02/27/24 aerosol inhaler (Proventil HFA) shortness of breath or wheezing vits no.126-ferrous fum 1 tab PO DAILY 01/13/24 02/28/24 28 mg iron-folic acid 800 mcg tablet (Classic ) docusate sodium 100 mg capsule 100 mg PO BID #60 caps 02/29/24 ibuprofen 600 mg tablet 600 mg PO Q6HR #60 tabs 02/29/24 oxycodone 5 mg tablet 5 mg PO Q4HR PRN Severe Pain 6 -10 02/29/24 #20 tabs LABS 02/29/24 09:12 FOLLOW UP [facility] TIME SPENT Time Spent in Discharge (Minutes): 30 Discharge Plan Discharge Patient Disposition: Home, Self Care Prescriptions: New docusate sodium 100 mg Capsule 100 mg PO BID Qty: 60 0RF ibuprofen 600 mg Tablet 600 mg PO Q6HR Qty: 60 0RF oxycodone 5 mg Tablet 5 mg PO Q4HR PRN (Reason: Severe Pain 6 -10) Qty: 20 0RF Continued acetaminophen [Acetaminophen Extra Strength] 500 MG tablet 1,000 mg PO Q8H PRN (Reason: Pain) Qty: 60 1RF fluoxetine 10 MG capsule 20 mg PO DAILY Patient Comments: Take 1 tablet by mouth in the morning Classic 28 mg iron- 800 mcg tablet 1 tab PO DAILY albuterol sulfate [Proventil HFA] 90 mcg/actuation HFA aerosol inhaler 2 puff inhalation Q6H PRN (Reason: shortness of breath or wheezing) Discontinued valacyclovir 500 mg tablet 500 mg PO BID PRN (Reason: outbreak) Activity Restrictions: Additional Comments Diet: Regular Print Language: Iraqi Patient Instructions: Depression , C Section Dc
[2024-02-29 17:05] VITALS: O2SAT 100
--- NOTE | 2024-02-29 19:47 | Labor Flowsheet ---
Labor Flowsheet Datetime Report Generated by CPN: 02/29/2024 19:47 Datetime: 02/29/2024 16:57 VITAL SIGNS NBP Sys/Carly/Mean (mmHg): 119 : 70 : 81 Pulse: 82 COMMUNICATION LaborFlag: Antepartum Datetime: 02/29/2024 09:36 VAGINAL EXAM Membranes Ruptured Date/Time: 02/28/2024 08:21 Membranes Rupture Method: Artificial Amniotic Fluid Color: Clear Datetime: 02/28/2024 11:44 SpO2 (%): 99 Datetime: 02/28/2024 06:32 MATERNAL ASSESSMENT Level of Consciousness: Alert Headache: Denies Breath Sounds, Left: Clear and Equal Breath Sounds, Right: Clear and Equal Nausea/Vomiting: Denies RUQ Epigastric Pain: Denies Datetime: 02/28/2024 06:14 UTERINE ACTIVITY Monitor Mode: External Frequency (min): 5-9 Quality: Mild Duration (sec): 40-60 Pattern: Normal: <= 5 Contractions in 10 Minutes Resting Tone (Palpate): Relaxed ASSESSMENT A Monitor Mode: External US FHR Baseline Rate : 125 Variability: Moderate 6-25 bpm Accelerations: 15X15 Decelerations: None Datetime: 02/28/2024 05:49 Temperature (C): 36.5 Datetime: 02/28/2024 05:38 Stage of : Antepartum
== END 2024-02-29 19:25 | disposition home or self-care (01) | DRG 787 ==
LOC: FBP 05:28
PROVIDERS: ADMIT Obstetrics & Gynecology; ATTEND Obstetrics & Gynecology